=== PATIENT | female | born 1945 | race Caucasian/White ===

== ENCOUNTER 2024-03-01 11:07 | Outpatient (CLI) | payer MEDICARE, BC, SELFPAY | END 2024-03-01 11:08 | disposition home or self-care (01) | LOC: AMB 03-15 08:14 | PROVIDERS: PCP Clinical Nurse Specialist Adult Health; Visit Provider Family Medicine | DX: S89.92XA Unspecified injury of left lower leg, initial encounter (principal); R53.1 Weakness; W18.11XA Fall from or off toilet without subsequent striking against object, initial encounter; Y92.031 Bathroom in apartment as the place of occurrence of the external cause | CPT/HCPCS: A0425; A0427 ==

== ENCOUNTER 2024-03-01 11:46 | Emergency (ER) | payer MEDICARE, BC, SELFPAY ==
[2024-03-01] VITALS (53 sets, daily range): BP systolic 107–143; BP diastolic 56–113; PULSE 80–114; RESP 16–20; TEMP 36.3; O2SAT 91–100; BMI 25.8
--- OUTSIDE RECORDS SUMMARY | 2024-03-01 11:48 | XMS_ITS | Continuity of Care Document ---
Author Name NwHIN User [facility] Address Unknown Organization Unknown Address Unknown Encounters FILTER APPLIED:Only known Encounters with Admission Date within the last 5 years Encounter Location Admission Discharge Billing Code Slitter And Cutter Operator [facility]ie [facility] Emergency
--- OUTSIDE RECORDS SUMMARY | 2024-03-01 11:48 | XMS_ITS | Clinical Summary ---
Author Organization [facility] Address [address] [place] [address] Care Team Providers Care Highway Commissioner Name Role Phone Sara Nur APRN, C.N.P. Primary Care Provide r Source Comments Patient records contain information from all sites at [facility]. For routine questions regarding patient records, call [phone] during business hours, M-F 8:00 AM - 5:00 PM Central Time. Record requests for emergency care only can be directed to [phone] at any time.[facility] Allergies No known active allergies Medications ALPRAZolam (XANAX) 0.25 mg tabletIndications: Insomnia Take 1 tablet (0.25 mg total) by mouth at bedtime as needed for anxiety. 30 tablet 5 [address] tabletIndications: Coronary Artery Disease Without Angina Pectoris Take 1 tablet (81 mg total) by mouth daily. 90 tablet 3 3 Active acetaminophen (Tylenol Extra Strength) 500 mg tablet Take 1,000 mg by mouth every 4 (four) hours as needed for pain. Active ibuprofen 200 mg tablet Take 400 mg by mouth every 4 (four) hours as needed for pain. Active cyclobenzaprine (FlexeriL) 10 mg tabletIndications: Fracture Stress Sacral And Sacrococcygeal Initial Take 1 tablet (10 mg total) by mouth 3 (three) times a day as needed for muscle spasms. 20 tablet 4 Active lidocaine (Lidoderm) 5 % adhesive patch,medicatedInd ications:Fracture Stress Sacral And Sacrococcygeal Initial Place 1 patch on the skin daily. Apply to Lower Back. 30 patch 4 Active amLODIPine (Norvasc) 5 mg tabletIndications: Hypertensive Heart Disease Without Heart Failure Take 1 tablet (5 mg total) by mouth daily. 90 tablet 3 4 Active atorvastatin (Lipitor) 40 mg tabletIndications: Coronary Artery Disease Without Angina Pectoris Take 1 tablet (40 mg total) by mouth at bedtime. 90 tablet 3 4 Active lisinopril-hydroCH LOROthiazide 20-12.5 mg per tablet Take 1 tablet by mouth daily. 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 180 tablet 3 4 025 Active metoprolol succinate (Toprol XL) 100 mg 24 hr tabletIndications: Hypertensive Heart Disease Without Heart Failure Take 1 tablet (100 mg total) by mouth daily. Do not crush or chew. 90 tablet 3 4 025 Active mirtazapine (Remeron) 15 mg tabletIndications: Insomnia Take 1 tablet (15 mg total) by mouth at bedtime. 90 tablet 3 4 025 Active alendronate (Fosamax) 70 mg tabletIndications: Osteoporosis Post Menopausal With Pathological Fracture Subsequent Take 1 tablet (70 mg total) by mouth every 7 (seven) days. 1 tablet weekly on an empty stomach, remain upright for at least 30 minutes 12 tablet 3 4 Active traMADoL (Ultram) 50 mg tabletIndications: Acute Pain Take 1 tablet (50 mg total) by mouth every 6 (six) hours as needed for pain or moderate pain or score 4-6 of 10 Indications: Acute Pain. 12 tablet 4 Active oxyCODONE (Roxicodone) 5 mg immediate release tabletIndications: Acute Pain Take 1 tablet (5 mg total) by mouth every 4 (four) hours as needed for pain Indication: Acute Pain. 12 tablet 4 Active cyclobenzaprine (FlexeriL) 10 mg tablet Take 1 tablet (10 mg total) by mouth 3 (three) times a day as needed for muscle spasms for up to 10 days. 15 tablet 5 025 Active traMADoL (Ultram) 50 mg tabletIndications: Acute Pain Take 1 tablet (50 mg total) by mouth every 6 (six) hours as needed for pain or moderate pain or score 4-6 of 10 Indications: Acute Pain. 12 tablet 4 024 Discontin ued(Reord er) cyclobenzaprine (FlexeriL) 10 mg tablet Take 1 tablet (10 mg total) by mouth 3 (three) times a day as needed for muscle spasms for up to 10 days. 15 tablet 4 024 Discontin ued(Reord er) Active Problems Problem Noted Date Diagnosed Date History Of Falling 10/02/2023 Hypertensive Heart And Chron ic Kidney Disease Without Heart Failure With Stage 1 To 4 Chronic Kidney Disease Or Unspecified Chronic Kidney Disease 11/23/2022 Diabetes Mellitus Type 2 Wit h Diabetic Chronic Kidney Disease 11/23/2022 Insomnia 10/02/2022 Pain Hip Left 02/05/2018 Diabetes Mellitus Type 2 Wit h Other Circulatory Complication 05/19/2010 Overview (07/10/2016): Diabetes mellitus type II Coronary Artery Disease Without Angina Pectoris 04/21/2008 Nicotine Dependence Cigarettes 04/21/2008 Resolved Problems Problem Noted Date Diagnosed Date Resolved Date Anxiety 02/05/2018 10/02/2022 Myocardial Infarction Acute 06/12/2016 02/05/2018 Overview (07/10/2016): Myocardial Infarction (CO) Acute NOS Hypertensive Heart Disease W ithout Heart Failure 04/21/2008 11/23/2022 Encounters Date Type Department Care Team Description 02/18/2024 Refill Department of Family Medicine, [facility], in [address] [phone] Sara Nur APRN, C.N.P. Med Refill 02/10/2024 9:52 AM WALL ATTENDANT - 02/10/2024 10:17 AM WALL ATTENDANT Emergency [facility] [address] [place] [phone] Dhaval Mueller, PZoe. Pain Back (Primary Dx) Discharge Disposition: Home or Self Care 02/10/2024 Nurse Triage Department of [facility] Medicine, [facility], in [address] [phone] Katie Epstein R.N. Tailbone Pain 02/07/2024 Clinical Communication Department of [facility] Medicine, [facility], in [address] [phone] Sara Nur, CINTHYA, C.N.P. New Med Request from Last 3 Months Immunizations Name Administration Dates Next Due HZV (ZOSTAVAX) 03/13/2012 Influenza high dose QV(65 ye ars or older) (PF) 12/17/2021,01/07/2021,01/19/2020 Influenza, Unspecified 11/28/2015,11/26/2014, PCV13 11/26/2014 PPSV23 03/08/2017,02/18/2006 RZV (SHINGRIX) 12/26/2018,03/12/2018 SARS-COV-2 (COVID-19) - PFIZ ER (Discontinued)(12 years or older) 01/07/2021,04/30/2020,04/09/2020 Td (Adult), adsorbed 06/26/2005 Td Preservative Free (TENIVAC, DECAVAC) 03/08/19 18 Tdap 07/27/2005 influenza trivalent high dose (HD)(PF) 9,02/05/2018,01/14/2017 Family History Medical History Relation Name Comments Pancreatic cancer Half-Brother Relation Name Status Comments Father Half-Brother Other Mother Social History Tobacco Use Types Packs/Day Years Used Date Smoking Tobacco: Every Day Cigarettes Smokeless Tobacco: Never Tobacco Cessation:Ready to Q uit: Not Asked; Counseling Given: Not Answered Alcohol Use Standard Drinks/Week Comments No 0 (1 standard drink = 0.6 oz pur e alcohol) [facility] Utilities Answer Date Recorded In the past 12 months has e [employer], [employer], or [employer] threatened to shut off services in your home? No 10/02/2023 Humiliation, Afraid, Rape, and Kick questionnair e Answer Date Recorded Within the last year, have y ou been afraid of your partner or ex-partner? No 10/02/2023 Within the last year, have y ou been humiliated or emotionally abused in other ways by your partner or ex-partner? No Within the last year, have y ou been kicked, hit, slapped, or otherwise physically hurt by your partner or ex-partner? No 10/02/2023 Within the last year, have y ou been raped or forced to have any kind of sexual activity by your partner or ex-partner? No 10/02/2023 PHQ-2 Answer Date Recorded PHQ-2 Score 1 10/02/2023 Exercise Vital Sign Answer Date Recorde d On average, how many days pe r week do you engage in moderate to strenuous exercise (like a brisk walk)? 7 days 10/02/2023 On average, how many minutes do you engage in exercise at this level? 30 min 10/02/2023 Hunger Vital Sign Answer Date Recorded Within the past 12 months, y ou worried that your food would run out before you got the money to buy more. Never true 10/02/19 Within the past 12 months, t he food you bought just didn't last and you didn't have money to get more. Never true 10/02/2023 PRAPARE - Transportation Answer Date Re corded In the past 12 months, has l ack of transportation kept you from medical appointments or from getting medications? No 09/18 In the past 12 months, has l ack of transportation kept you from meetings, work, or from getting things needed for daily living? No 10/02/2023 Depression Answer Date Recor ded PHQ-9 Total Score (max 27) 9 03/28 Nutrition Answer Date Recorded On average, how many serving s of fruits and vegetables do you eat per day (serving size is equal to 1 cup or approximately the size of a tennis ball)? 0-2 10/02/2023 Dental Answer Date Recorded Dental: Regular Dentist Yes 10/02/19 Employment Answer Date Recorded Employment status Retired 10/02/2023 Housing Stability Answer Date Recorded What is your living situation today? I have a [facility] place to live 10/02/2023 Comments No Sex and Gender Information Value Date Recorded Sex Assigned at Not on file Legal Sex Female 3:40 PM WALL ATTENDANT Gender Identity Not on file Sexual Orientation Not on file Last Filed Vital Signs Vital Sign Reading Time Taken Comments Blood Pressure 135/67 02/10/2024 9:59 AM WALL ATTENDANT Pulse 74 02/10/2024 9:59 AM WALL ATTENDANT Temperature 36.3 C (97.3 F) 02/10/2024 9:59 AM WALL ATTENDANT Respiratory Rate 18 02/10/2024 9:59 AM WALL ATTENDANT Oxygen Saturation 96% 02/10/2024 9:59 AM WALL ATTENDANT Inhaled Oxygen Concentration - - Weight 77.4 kg (170 lb 10.2 oz) 024 10:19 AM CDT Height 166.3 cm (5' 5.47) 10/02/2023 1 0:19 AM CDT Body Mass Index 27.99 10/02/2023 10:19 AM CDT Plan of Treatment Upcoming Encounters Date Type Department Care Team (Late st Contact Info) Description 03/06/2024 9:45 AM WALL ATTENDANT Office Visit Department of Family Medicine, [facility], in [address] [phone] Joon Anglin M.D. [address] [place] [phone] Discharge Disposition: Home or Self Care Health Maintenance Due Date Last Done Comments Hepatitis B Vaccines (1 of 3 - Risk 3-dose series) 2005 Diabetes Education 07/31/2016 11/26/2014 RSV vaccine - (32-36 weeks) or 60+ years (1 - 1-dose 75+ series) 2020 Diabetic Office Visit with Foot Exam 10/03/2023 10/02/2022, 10/02/2022, 02/22/2021, Additional history exists Tobacco Cessation counseling 10/03/2023 10/02/2022 COVID-19 Vaccine ( season) 2023 01/07/2021, 04/30/2020, 04/09/2020 Influenza Vaccine (#1) 2023 , 01/07/2021, 01/19/2020, Additional history exists Hemoglobin A1C 11/28/2023 05/29/2023, 09/19, 03/06/2022, Additional history exists Creatinine Level (Kidney Function Test) 01/10/2024 01/09/2023, 11/23/2022, 11/16/2022, Additional history exists Potassium Level 01/10/2024 01/09/2023, 1007/2022, 11/16/2022, Additional history exists Sodium Level 01/10/2024 01/09/2023, 1007/2022, 11/16/2022, Additional history exists Urine Albumin 01/10/2024 01/09/2023, 10/20, 03/06/2022, Additional history exists Fall Risk Screen (Annual) 02/19/2024 Dilated Eye Exam 07/23/2024 07/24/2023 (Per formed elsewhere), 11/23/2019 (Performed elsewhere), 11/17/2018 (Performed elsewhere), Additional history exists Office Visit for Blood Pressure Check / Re-check 10/01/2024 10/02/2023 Visit: Medicare Annual Wellness 10/02/2024 10/02/2023, 10/02/2022 DTaP,Tdap,and Td Vaccines (3 - Td or Tdap) 03/08/2027 03/08/2017, 07/27/2005, 06/26/2005 Pneumococcal vaccine (50+ years) Completed 03/08/2017, 11/26/2014, 02/18/2006 Hepatitis C Screening Completed 12/26/2018 Zoster Vaccines Completed 12/26/2018, 02/19, 03/13/2012 Mammogram Discontinued 02/23/2021, 01/19, 02/06/2019, Additional history exists Depression Screening (Annual PHQ-2) Completed 10/02/2023 Visit: Chronic Disease, age 18+ Discontinued 10/02/2023, 10/02/2023, 06/21/2021 IPV Vaccines Aged Out No longer eligi ble based on patient's age to complete this topic Medical Devices Implanted Type Area Robotics Systems Engineer Device Identifier Shelf Expiration Date Model / Serial / Lot Synergy 4.0 X 16 - Singh [id number] Implanted:Qty: 1 on 10/17/2015 Cardiac Stent Soevolved Description:Device Manufactu rer - [employer]evolved. Device Status Text - [id number]. 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 Glomerular Filtration Rate (GFR) 30 To 44 (HCC) BASIC METABOLIC PANEL, S/P Routine 01/09/2023 12:26 PM WALL ATTENDANT Edema Lower Extremity Failure Renal Acute (Acute Kidney Injury) (HCC) BI BREAST SCREENING BILATERAL WITH TOMOSYNTHESIS RAD - Routine (most inpatients and all outpatients) 02/23/2021 7:45 AM WALL ATTENDANT Screening Mammogram Breast Cancer HCV AB SCRN W/REFLEX TO HCV PCR, S Routine 12/26/2018 2:50 PM WALL ATTENDANT Wellness Screening from Last 3 Months or Most Recently Relevant to Health Maintenance Results * (ABNORMAL) Hemoglobin A1c (05/29/2023 11:23 AM CDT) Hemoglobin A1c, B 6.5(H) 4.2 - 5.6 % 05/29/2023 11:37 AM CDT CNFL Comment: Hemoglobin A1c values greater than or equal to 6.5 percent are diagnostic for diabetes mellitus. Diagnosis should be confirmed by repeat testing. In diabetic patients, HbA1c goals should be discussed with healthcare provider. Blood (Blood, Venous) 05/29/2023 11:23 AM CDT 05/29/2023 11:24 AM CDT Carlos Parr M.D., Ph.D. LAB BLOOD ADD-ON Final Result Performing Organization Address [facility]/ZIP Co de Phone Number [facility] [address] [place] [phone], [place] [address] * Albumin, Random, Urine (01/09/2023 12:38 PM WALL ATTENDANT) Microalbumin <12.0 mg/L 01/09/2023 12:53 PM WALL ATTENDANT CNFL Comment:If clinically indica marlo, contact the lab for additional testing. Creatinine 91 mg/dL 01/09/2023 12:53 PM WALL ATTENDANT CNFL Albumin/Creatinine Ratio <13 <25 mg/g 01/09/2023 12:53 PM WALL ATTENDANT CNFL Comment: This ratio may not correspond with the reference range because one or both of the values used to calculate the ratio was above or below the quantification limits. Urine (Urine, Midstream) 01/09/2023 12:38 PM WALL ATTENDANT 01/09/2023 12:38 PM WALL ATTENDANT Carlos Parr M.D., Ph.D. LAB URINE ORDERABLES Fi nal Result Performing Organization Address [facility] Co de Phone Number [facility] [address] [place] [phone], RUST CNFL [address] [address] * (ABNORMAL) Basic Metabolic Panel (01/09/2023 12:26 PM WALL ATTENDANT) Potassium, P 4.2 3.6 - 5.2 mmol/L 01/09/2023 1:00 PM WALL ATTENDANT CNFL Sodium, P 136 135 - 145 mmol/L 01/09/2023 1:00 PM WALL ATTENDANT CNFL Chloride, P 101 98 - 107 mmol/L 01/09/2023 1:00 PM WALL ATTENDANT CNFL Bicarbonate, P 24 22 - 29 mmol/L 01/09/2023 1:00 PM WALL ATTENDANT CNFL Anion Gap, P 11 7 - 15 01/09/2023 1:00 PM WALL ATTENDANT CNFL BUN (Blood Urea Nitrogen), P 24(H) 6 - 21 mg/dL 01/09/2023 1:00 PM WALL ATTENDANT CNFL Creatinine 1.42(H) 0.59 - 1.04 mg/dL 01/09/2023 1:00 PM WALL ATTENDANT CNFL Estimated GFR (eGFR) 38(L) >=60 mL/min/BSA 01/09/2023 1:00 PM WALL ATTENDANT CNFL Comment: Estimated GFR calculated using the 2020 CKD_EPI creatinine equation. Calcium, Total, P 9.2 8.8 - 10.2 mg/dL 01/09/2023 1:00 PM WALL ATTENDANT CNFL Glucose, P 147(H) 70 - 140 mg/dL 01/09/2023 1:00 PM WALL ATTENDANT CNFL Blood (Blood, Venous) 01/09/2023 12:26 PM WALL ATTENDANT 01/09/2023 12:31 PM WALL ATTENDANT us Jackie Stark M.D. LAB BLOOD ADD-ON Final Res ult Performing Organization Address City/State/[facility] Co de Phone Number [facility] [address] [place] [address], RUST CNFL [facility] [place] [address] * BI Breast Screening Bilateral with Tomosynthesis (02/23/2021 7:45 AM WALL ATTENDANT) Anatomical Region Laterality Modality Breast, Breast Imaging RST L OS, Breast Imaging ARZ LOS, Breast Imaging FLA LOS Bilateral Mammography 02/23/2021 8:48 AM WALL ATTENDANT Impressions 02/23/2021 8:51 AM WALL ATTENDANT Negative. RECOMMENDATION: Annual Screening Mammogram ASSESSMENT: BI-RADS: 1: Negative. Narrative 02/23/2021 8:51 AM WALL ATTENDANT EXAM: BI BREAST SCREENING BILATERAL WITH TOMOSYNTHESIS Current study was evaluated with a Computer Aided Detection (CAD) system. INDICATION: Screening mammogram. COMPARISON: Prior exam(s) were available and reviewed for comparison. DENSITY: b. There are scattered areas of fibroglandular density. FINDINGS: No mammographic findings of malignancy. Procedure Note Ellis Rutherford M.D. - 02/23/2021 EXAM: BI BREAST SCREENING BILATERAL WITH TOMOSYNTHESIS Current study was evaluated with a Computer Aided Detection (CAD) system. INDICATION: Screening mammogram. COMPARISON: Prior exam(s) were available and reviewed for comparison. DENSITY: b. There are scattered areas of fibroglandular density. FINDINGS: No mammographic findings of malignancy. IMPRESSION: Negative. RECOMMENDATION: Annual Screening Mammogram ASSESSMENT: BI-RADS: 1: Negative. Carlos Parr M.D., Ph.D. IMG BI PROCEDURES Final Result * HCV Ab Scrn w/Reflex to HCV PCR, Serum (12/26/2018 2:50 PM WALL ATTENDANT) HCV Ab Screen, S Negative Negative 12/28/19 19 1:42 AM WALL ATTENDANT ECLR Comment: Biotin has been identified by the rotary cutter as a potential interfering substance. Higher concentrations of biotin may be found in multivitamins, hair/nail supplements, and workout supplements. If the result does not match clinical observations, repeat testing after patient refrains from the use of supplements for at least 12 hours. Blood (Blood, Venous) 12/26/2018 2:50 PM WALL ATTENDANT 12/26/2018 9:39 PM WALL ATTENDANT Narrative [facility] - 12/27/2018 1:42 AM WALL ATTENDANT Specimen Information: Specimen ID: [id number] Specimen Type: Blood Specimen Collection Start Date: 12/26/2018 2:50 PM Specimen Received Date: 12/26/2018 9:39 PM Specimen ID: [id number] Specimen Type: Blood Specimen Collection Start Date: 12/26/2018 2:50 PM Specimen Received Date: 12/26/2018 9:39 PM Carlos Parr M.D., Ph.D. LAB MICROBIOLOGY - BLOO D ORDERABLES Final Result [facility] [address] [place] [phone], RUST ECLR [facility] in [address] [address] from Last 3 Months or Most Recently Relevant to Health Maintenance Insurance MEDICARE [facility] Care Teams Highway Commissioner Relationship Specialty Start Date End Date Sara Nur APRN, C.N.P. [address] [place] [phone] PCP - General 07/05/23
--- OUTSIDE RECORDS SUMMARY | 2024-03-01 11:49 | XMS_ITS ---
Author Organization [facility] Address [address] [place] [address] Care Team Providers Care Cold Mill Operator Name Role Phone Unavailable Unavailable Unavailable Surgery Details Not on file Complications Check Surgery Details section. Procedure Estimated Blood Loss Check Surgery Details section. Procedure Findings Check Surgery Details section. Procedure Specimens Taken Check Surgery Details section.
--- OUTSIDE RECORDS SUMMARY | 2024-03-01 11:49 | XMS_ITS | Encounter Summary ---
Author Organization [facility] Address [address] [place] [address] Care Team Providers Care Computer Science Teacher Name Role Phone Sara Nur APRN, C.N.P. Primary Care Provide r Reason for Visit * Reason Onset Date Comments Med Refill 02/18/2024 Encounter Details Date Type Department Care Team (Late st Contact Info) Description 02/18/2024 Refill Department of Family Medicine, [facility], in [address] [phone] Sara Nur APRN, C.N.P. [address] [place] [phone] Med Refill Social History Tobacco Use Types Packs/Day Years Used Date Smoking Tobacco: Every Day Cigarettes Smokeless Tobacco: Never Alcohol Use Standard Drinks/Week Comments No 0 (1 standard drink = 0.6 oz pur e alcohol) [facility] Utilities Answer Date Recorded In the past 12 months has [employer], gas, oil, or water [employer] threatened to shut off services in your [...] your living situation today? I have a [facility] place to live 10/02/2023 Comments No Sex and Gender Information Value Date Recorded Sex Assigned at Not on file Legal Sex Female 3:40 PM PERSONAL ASSISTANT Gender Identity Not on file Sexual Orientation Not on file documented as of this encounter Miscellaneous Notes * Telephone Encounter - John Hackett, L.P.N. - 02/21/2024 11:42 AM PERSONAL ASSISTANT This prescription was prescribed for short term use / acute need. Please reach out and call patientto assess ongoing pain concerns before routing to provider. Thank you ONAL ASSISTANT * Telephone Encounter - Jessica Sharif - 02/20/2024 9:31 AM CST Needs Review: Med Refill Team is unable to forward request to provider. Controlled Substance Primary Provider: Sara Nur APRN, C.N.P. Requested Prescriptions Pending Prescriptions Disp Refills traMADoL (Ultram) 50 mg tablet 12 tablet 0 Sig: Take 1 tablet (50 mg total) by mouth every 6 (six) hours as needed for pain or moderate pain or score 4-6 of 10 Indications: Acute Pain. cyclobenzaprine (FlexeriL) 10 mg tablet 15 tablet 0 Sig: Take 1 tablet (10 mg total) by mouth 3 (three) times a day as needed for muscle spasms for up to 10 days. ONAL ASSISTANT documented in this encounter Plan of Treatment Upcoming Encounters Date Type Department Care Team (Late st Contact Info) Description 03/06/2024 9:45 AM PERSONAL ASSISTANT Office Visit Department of Family Medicine, [facility], in [address] [phone] Joon Anglin M.D. [address] [place] [phone] Discharge Disposition: Home or Self Care documented as of this encounter Visit Diagnoses Not on filedocumented in this encounter Additional Health Concerns Assessment Noted Time PHQ-9 Depression Total Score: 9 03/28/19 21 9:55 AM PERSONAL ASSISTANT documented as of this encounter Care Teams Computer Science Teacher Relationship Specialty Start Date End Date Sara Nur APRN, C.N.P. [address] [place] [phone] PCP - General 07/05/23 documented as of this encounter
--- OUTSIDE RECORDS SUMMARY | 2024-03-01 11:49 | XMS_ITS | Encounter Summary ---
Author Organization [facility] Address [address] [place] [address] Care Team Providers Care Cdl Truck Driver Name Role Phone Sara Nur APRN, C.N.P. Primary Care Provide r Reason for Visit * Reason Comments Back Pain Encounter Details Date Type Department Care Team (Late st Contact Info) Description 02/10/2024 9:52 AM RAIL CAR OPERATOR - 02/10/2024 10:17 AM [facility] Emergency [facility] [address] [place] [phone] Dhaval Mueller, P.A.-C. [address] [place] [phone] Pain Back (Primary Dx) Discharge Disposition: Home or Self Care Social History Tobacco Use Types Packs/Day Years Used Date Smoking Tobacco: Every Day Cigarettes Smokeless Tobacco: Never Alcohol Use Standard Drinks/Week Comments No 0 (1 standard drink = 0.6 oz pur e alcohol) [facility] Utilities Answer Date Recorded In the past 12 months has e electric, gas, oil, or water company threatened to shut off services in your [...] your living situation today? [facility] 10/02/2023 Comments No Sex and Gender Information Value Date Recorded Sex Assigned at Not on file Legal Sex Female 3:40 PM RAIL CAR OPERATOR Gender Identity Not on file Sexual Orientation Not on file documented as of this encounter Last Filed Vital Signs Vital Sign Reading Time Taken Comments Blood Pressure 135/67 02/10/2024 9:59 AM RAIL CAR OPERATOR Pulse 74 02/10/2024 9:59 AM RAIL CAR OPERATOR Temperature 36.3 C (97.3 F) 02/10/2024 9:59 AM RAIL CAR OPERATOR Respiratory Rate 18 02/10/2024 9:59 AM RAIL CAR OPERATOR Oxygen Saturation 96% 02/10/2024 9:59 AM RAIL CAR OPERATOR Inhaled Oxygen Concentration - - Weight - - Height - - Body Mass Index - - documented in this encounter Discharge Instructions * Discharge Instructions* Dhaval Mueller P.A.-C. - 02/10/2024 10:09 AM RAIL CAR OPERATOR I am writing prescriptions for oxycodone and Flexeril which were helpful with your pain previously.I would like for you to follow up with your primary care provider to consider advanced imaging since her symptoms have returned. Please return to the ER if new symptoms develop, current symptoms worsen, or you becomes concerned. CAR OPERATOR * Attachments The following attachments cannot be sent through Care Everywhere. * Acute Back Pain Adult ([place]atem[place]) documented in this encounter Medications at Time of Discharge acetaminophen (Tylenol Extra Strength) 500 mg tablet Take 1,000 mg by mouth every 4 (four) hours as needed for pain. alendronate (Fosamax) 70 mg tabletIndications:Os teoporosis Post Menopausal With Pathological Fracture Subsequent Take 1 tablet (70 mg total) by mouth every 7 (seven) days. 1 tablet weekly on an empty stomach, remain upright for at least 30 minutes 12 tablet 3 10/31/2023 ALPRAZolam (XANAX) 0.25 mg tabletIndications:In somnia Take 1 tablet (0.25 mg total) by mouth at bedtime as needed for anxiety. 30 tablet 5 10/02/2022 amLODIPine (Norvasc) 5 mg tabletIndications:Hy pertensive Heart Disease Without Heart Failure Take 1 tablet (5 mg total) by mouth daily. 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 90 tablet 3 10/02/2023 cyclobenzaprine (FlexeriL) 10 mg tabletIndications:Fr acture Stress Sacral And Sacrococcygeal Initial Take 1 tablet (10 mg total) by mouth 3 (three) times a day as needed for muscle spasms. 20 tablet 10/02/2023 ibuprofen 200 mg tablet Take 400 mg by mouth every 4 (four) hours as needed for pain. lidocaine (Lidoderm) 5 % adhesive patch,medicatedIndic ations:Fracture Stress Sacral And Sacrococcygeal Initial Place 1 patch on the skin daily. Apply to Lower Back. 30 patch 10/02/2023 lisinopril-hydroCHLO ROthiazide 20-12.5 mg per tablet Take 1 tablet by mouth daily. 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 180 tablet 3 10/02/2023 5 metoprolol succinate (Toprol XL) 100 mg 24 hr tabletIndications:Hy pertensive Heart Disease Without Heart Failure Take 1 tablet (100 mg total) by mouth daily. Do not crush or chew. 90 tablet 3 10/02/2023 5 mirtazapine (Remeron) 15 mg tabletIndications:In somnia Take 1 tablet (15 mg total) by mouth at bedtime. 90 tablet 3 10/02/2023 5 oxyCODONE (Roxicodone) 5 mg immediate release tabletIndications:Ac [place] Pain Take 1 tablet (5 mg total) by mouth every 4 (four) hours as needed for pain Indication: Acute Pain. 12 tablet 02/10/2024 traMADoL (Ultram) 50 mg tabletIndications:Ac [place] Pain Take 1 tablet (50 mg total) by mouth every 6 (six) hours as needed for pain or moderate pain or score 4-6 of 10 Indications: Acute Pain. 12 tablet 02/09/2024 cyclobenzaprine (FlexeriL) 10 mg tablet Take 1 tablet (10 mg total) by mouth 3 (three) times a day as needed for muscle spasms for up to 10 days. 15 tablet 02/10/2024 4 documented as of this encounter ED Notes * Dhaval Mueller, PTitus-Esperanza - 02/10/2024 10:17 AM CST SUBJECTIVE CHIEF COMPLAINT/REASON FOR VISIT Back Pain HISTORY OF PRESENT ILLNESS 78-year-old female presents ER with complaints of lower back pain that returned after doing laundryyesterday. She states that she was previously seen and diagnosed with a sacral fracture. Her symptoms had improved until this most recent episode. She denies new or changes symptoms compared to previous episodes. History provided by: Patient REVIEW OF SYSTEMS All pertinent systems reviewed and are negative except as discussed in HPI OBJECTIVE Initial Vitals [02/10/24 0959] Temperature 36.3 ??C Pulse Rate 74 Heart Rate Resp Rate 18 Blood Pressure 135/67 SpO2 96 % Pain Score 10 - Worst possible pain PHYSICAL EXAMINATION Constitutional: Nursing note and vitals reviewed. HENT: Head: Normocephalic and atraumatic. Nose: Nose normal. Mouth/Throat: Oropharynx is clear and moist. Mucous membranes are moist. Neck: Neck supple. Cardiovascular: Normal rate, regular rhythm, S1 normal, S2 normal and normal heart sounds. Pulmonary/Chest: Effort normal and breath sounds normal. Abdominal: Soft. Bowel sounds are normal. There is no abdominal tenderness. There is no rigidity, no rebound, no guarding and no CVA tenderness. Musculoskeletal: Cervical back: Neck supple. Legs: Comments: Patient is neurovascularly intact distally. No saddle paresthesias. No lower extremity weakness. No footdrop. Neurological: Alert and oriented to person, place, and time. Skin: Skin is warm. ASSESSMENT/PLAN Assessment and Plan Patient appears well. Based on history, physical exam, and all information gathered in the ER today; I do not suspect spinal abscess, cauda equina syndrome, new fractures. . Patient's symptoms appearconsistent with continued pain following sacral fracture. Please see previous note from her last ERvisit for full details.. Considered additional testing including further imaging , but this does not appear to be indicated at this time given observable information at todays visit. I have reviewed patients previous clinic notes, ER visits, and laboratory testing. Admission does not appear to be indicate at this time, however pt's condition may change requiring repeat examination in the ER. Patie nt appears stable for continued care and work-up as inidicated as an outpatient. Patient will return to the ER if new symptoms develop, current symptoms worsen, symptoms fail to improve, patient becomes concerned. Patient discharged in good condition. Patient reports oxycodone and Flexeril helpful previously and will write prescription for the same. Fall precautions given.. I reviewed the following external records: office records and primary care records. Final Diagnoses: as of 02/11/24 1310 Pain Back Dhaval Mueller P.A.-C. 02/11/24 1317 CAR OPERATOR documented in this encounter Plan of Treatment Upcoming Encounters Date Type Department Care Team (Late st Contact Info) Description 03/06/2024 9:45 AM RAIL CAR OPERATOR Office Visit Department of Family Medicine, [facility], in [address] [phone] Joon Anglin M.D. [address] [place] [phone] Discharge Disposition: Home or Self Care documented as of this encounter Visit Diagnoses Diagnosis Pain Back- Primary documented in this encounter Additional Health Concerns Assessment Noted Time PHQ-9 Depression Total Score: 9 03/28/19 21 9:55 AM RAIL CAR OPERATOR documented as of this encounter Care Teams Cdl Truck Driver Relationship Specialty Start Date End Date Sara Nur APRN, C.N.P. [address] [place] [phone] PCP - General 07/05/23 documented as of this encounter
--- OUTSIDE RECORDS SUMMARY | 2024-03-01 11:49 | XMS_ITS | Encounter Summary ---
Author Organization [facility] Address [address] [place] [address] Care Team Providers Care Test Desk Operator Name Role Phone Sara Nur APRN, C.N.P. Primary Care Provide r Reason for Visit * Reason Onset Date Comments Tailbone Pain 02/10/2024 Encounter Details Date Type Department Care Team (Late st Contact Info) Description 02/10/2024 Nurse Triage Department of Family Medicine, [facility] [place], in [address] [phone] Katie Epstein, RCornelNCornel [address] [place] [phone] Tailbone Pain Social History Tobacco Use Types Packs/Day Years Used Date Smoking Tobacco: Every Day Cigarettes Smokeless Tobacco: Never Alcohol Use Standard Drinks/Week Comments No 0 (1 standard drink = 0.6 oz pur e alcohol) [facility] Utilities Answer Date Recorded In the past 12 months has e Direct[employer], gas, oil, or water [employer] threatened to shut off services in your [...] your living situation today? I have a [facility] place to live 10/02/2023 Comments No Sex and Gender Information Value Date Recorded Sex Assigned at Not on file Legal Sex Female 3:40 PM CHRISTMAS TREE GROWER Gender Identity Not on file Sexual Orientation Not on file documented as of this encounter Miscellaneous Notes * Telephone Encounter - Katie Epstein R.N. - 02/10/2024 8:40 AM CHRISTMAS TREE GROWER Chief Complaint / Reason for Call Patient is a 78 y.o. female calling regarding Tailbone Pain. Assessment Concern: -4 months ago September 2023 fracture to tailbone and it has healed. Left with mild pain. -4 days ago was doing laundry and was bending over a lot and pain in tailbone became severe again -Walking rates pain at a 8-9/10, laying on back flat is the only way pain decreases to a 6/10. Has to push a cart in order to walk for stability due to pain -radiating pain down the back of right leg to foot and down the left leg to the knee -Tingling bilateral legs -She is able to walk with severe pain -Advil helps with pain only for 30 minutes or so and then severe again Present for: 4 days Home cares tried: Blayneil, resting on back Calling to request: appointment The recommended disposition is Go to ED Now (or PCP Triage), See a health care provider within 4 hours, Go to ED Now. -Patient will go to the ED now with someone to drive her Reason for Disposition [1] SEVERE back pain (e.g., excruciating) AND [2] sudden onset AND [3] age > 60 years [1] SEVERE back pain (e.g., excruciating, unable to do any normal activities) AND [2] not improved 2 hours after pain medicine [1] Pain radiates into the thigh or further down the leg AND [2] both legs Can't walk or very difficult to walk Weakness of a leg or foot (e.g., unable to bear weight, dragging foot) Numbness in a leg or foot (i.e., loss of sensation) Additional Information Negative: Dangerous mechanism of injury (e.g., fall > 10 feet or 3 meters, trampoline)(Exception: Pain began > 1 hour after injury.) Tailbone fracture 09/2023 Protocols used: Tailbone Laehnu-Kegmn-BK, Back Wjuv-Lctro-RD Care Advice Patient/Caregiver understands and will follow care advice?: Yes, able to teach back Back Uuqe-Pyfge-GN Nurse Katie Mcelroy Feb 10, 2024 08:47 AM Care Advice GO TO ED NOW: * You need to be seen in the Emergency Department. * Go to the ED at Hospital. * Leave now. Drive carefully. ANOTHER ADULT SHOULD DRIVE: * It is better and safer if another adult drives instead of you. PAIN MEDICINES: * For pain relief, you can take either acetaminophen, ibuprofen, or naproxen. * They are npib-mrk-xefkhto (OTC) pain drugs. You can buy them at the drugstore. * ACETAMINOPHEN - REGULAR STRENGTH TYLENOL: Take 650 mg (two 325 mg pills) by mouth every 4 to 6 hours as needed. Each Regular Strength Tylenol pill has 325 mg of acetaminophen. The most you should take is 10 pills a day (3,250 mg total). Note: In [place], the maximum is 12 pills a day (3,900 mg total). * ACETAMINOPHEN - EXTRA STRENGTH TYLENOL: Take 1,000 mg (two 500 mg pills) every 6 to 8 hours as needed. Each Extra Strength Tylenol pill has 500 mg of acetaminophen. The most you should take is 6 pills a day (3,000 mg total). Note: In [place], the maximum is 8 pills a day (4,000 mg total). * IBUPROFEN (SUCH MOTRIN, ADVIL): Take 400 mg (two 200 mg pills) by mouth every 6 hours. The most you should take is 6 pills a day (1,200 mg total). * NAPROXEN (SUCH ALEVE): Take 220 mg (one 220 mg pill) by mouth every 8 to 12 hours as needed. You may take 440 mg (two 220 mg pills) for your first dose. The most you should take is 3 pills a day(660 mg total). Note: In [place], the maximum is 2 pills a day (one every 12 hours; 440 mg total). * Use the lowest amount of medicine that makes your pain better. PAIN MEDICINES - EXTRA NOTES AND WARNINGS: * Follow these dosing instructions unless your doctor (or COAL CUTTER/PA) has told you to take a different dose. * Acetaminophen is thought to be safer than ibuprofen or naproxen in people over 65 years old. Acetaminophen is in many OTC and prescription medicines. It might be in more than one medicine that you are taking. You need to be careful and not take an overdose. An acetaminophen overdose can hurt the liver. * [employer], the company that makes Tylenol, has different maximum dosage instructions for Tylenol in [place] than in the [place]. [employer], the company that makes Aleve, has different dosage maximum instructions for Aleve in [place] and the [place]. * Some people with muscle and joint pain benefit from using OTC topical pain medicines (such as thetopical NSAID diclofenac). Do NOT also take NSAIDs by mouth while using a topical NSAID. * CAUTION: Do not take acetaminophen if you have liver disease. * CAUTION: Do not take ibuprofen or naproxen if you have stomach problems, kidney disease, are , or have been told by your doctor to avoid this type of anti-inflammatory drug. Do not take ibuprofen or naproxen for more than 7 days without consulting your doctor. If you take blood thinners, ibuprofen and naproxen can increase the risk of bleeding. * Before taking any medicine, read all the instructions on the package. Mask to protect self Someone will drive patient STMAS TREE GROWER documented in this encounter Plan of Treatment Upcoming Encounters Date Type Department Care Team (Late st Contact Info) Description 03/06/2024 9:45 AM CHRISTMAS TREE GROWER Office Visit Department of Family Medicine, [facility] [place], in [address] [phone] Joon Anglin M.D. [address] [place] [phone] Discharge Disposition: Home or Self Care documented as of this encounter Visit Diagnoses Not on filedocumented in this encounter Additional Health Concerns Assessment Noted Time PHQ-9 Depression Total Score: 9 03/28/19 21 9:55 AM CHRISTMAS TREE GROWER documented as of this encounter Care Teams Test Desk Operator Relationship Specialty Start Date End Date Sara Nur APRN, C.N.P. [address] [place] [phone] PCP - General 07/05/23 documented as of this encounter
--- OUTSIDE RECORDS SUMMARY | 2024-03-01 11:49 | XMS_ITS | Referral Summary ---
Author Organization [facility] Address [address] [place] [address] Care Team Providers Care Insurance Defense Paralegal Name Role Phone Sara Nur APRN C.N.P. Primary Care Provide r Source Comments Patient records contain information from all sites at [facility]. For routine questions regarding patient records, call [phone] during business hours, M-F 8:00 AM - 5:00 PM Central Time. Record requests for emergency care only can be directed to [phone] at any time.[facility] Encounters Date Type Department Care Team Description 02/18/2024 Refill Department of Family Medicine, [facility], [address] [phone] Sara Nur APRN, C.N.P. Med Refill 02/10/2024 9:52 AM MAIL DISTRIBUTION SCHEME EXAMINER - 02/10/2024 10:17 AM MAIL DISTRIBUTION SCHEME EXAMINER Emergency [facility] [address] [place] [phone] Dhaval Mueller, P.A.-C. Pain Back (Primary Dx) Discharge Disposition: Home or Self Care 02/10/2024 Nurse Triage Department of Family Medicine, [facility], [address] [phone] Katie Epstein R.N. Tailbone Pain 02/07/2024 Clinical Communication Department of Family Medicine, [facility], [address] [place] [phone] Sara Nur APRN, C.N.P. New Med Request from Last 3 Months Allergies No known active allergies Medications ALPRAZolam [...] Acute 06/12/2016 02/05/2018 Overview (07/10/2016): Myocardial Infarction ([place]) Acute NOS Hypertensive Heart Disease [facility] Heart Failure 04/21/2008 11/23/2022 Immunizations Name Administration Dates Next Due HZV (ZOSTAVAX) 03/13/2012 Influenza high dose QV(65 ye ars or older) (PF) 12/17/2021,01/07/2021,01/19/2020 Influenza, Unspecified 11/28/2015,11/26/2014, PCV13 11/26/2014 PPSV23 03/08/2017,02/18/2006 RZV (SHINGRIX) 12/26/2018,03/12/2018 SARS-COV-2 (COVID-19) - PFIZ ER (Discontinued)(12 years or older) 01/07/2021,04/30/2020,04/09/2020 Td (Adult), adsorbed 06/26/2005 Td Preservative Free (TENIVAC, DECAVAC) 03/08/19 18 Tdap 07/27/2005 influenza trivalent high dose (HD)(PF) 9,02/05/2018,01/14/2017 Social History Tobacco Use Types Packs/Day Years Used Date Smoking Tobacco: Every Day Cigarettes Smokeless Tobacco: Never Tobacco Cessation:Ready to Q uit: Not Asked; Counseling Given: Not Answered Alcohol Use Standard Drinks/Week Comments No 0 (1 standard drink = 0.6 oz pur e alcohol) [facility] Utilities Answer Date Recorded In the past 12 months has e [employer], gas, oil, or water company threatened to [...] Date Recorded Dental: Regular Dentist Yes 10/02/19 24 Employment Answer Date Recorded Employment status Retired 10/02/2023 Housing Stability Answer Date Recorded What is your living situation today? I have a [facility] place to live 10/02/2023 Comments No Sex and Gender Information Value Date Recorded Sex Assigned at Not on file Legal Sex Female 3:40 PM MAIL DISTRIBUTION SCHEME EXAMINER Gender Identity Not on file Sexual Orientation Not on file Last Filed Vital Signs Vital Sign Reading Time Taken Comments Blood Pressure 135/67 02/10/2024 9:59 AM MAIL DISTRIBUTION SCHEME EXAMINER Pulse 74 02/10/2024 9:59 AM MAIL DISTRIBUTION SCHEME EXAMINER Temperature 36.3 C (97.3 F) 02/10/2024 9:59 AM MAIL DISTRIBUTION SCHEME EXAMINER Respiratory Rate 18 02/10/2024 9:59 AM MAIL DISTRIBUTION SCHEME EXAMINER Oxygen Saturation 96% 02/10/2024 9:59 AM MAIL DISTRIBUTION SCHEME EXAMINER Inhaled Oxygen Concentration - - Weight 77.4 kg (170 lb 10.2 oz) 024 10:19 AM CDT Height 166.3 cm (5' 5.47) 10/02/2023 1 0:19 AM CDT Body Mass Index 27.99 10/02/2023 10:19 AM CDT Plan of Treatment Upcoming Encounters Date Type Department Care Team (Late st Contact Info) Description 03/06/2024 9:45 AM MAIL DISTRIBUTION SCHEME EXAMINER Office Visit Department of Family Medicine, [facility], in [address] [phone] Joon Anglin M.D. [address] [place] [phone] Discharge Disposition: Home or Self Care Medical Devices Implanted Type Area Janitorial Supervisor Device Identifier Shelf Expiration Date Model / Serial / Lot Synergy 4.0 X 16 - Singh [id number] Implanted:Qty: 1 on 10/17/2015 Cardiac Stent [employer] Scientific Description:Device Manufactu rer - [employer]. Device Status Text - [id number]. 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 LAB BLOOD ADD-ON Final Result [facility] [address] [place] [id number], [facility] CNFL [facility] in [address] [address] * Albumin, Random, Urine (01/09/2023 12:38 PM MAIL DISTRIBUTION SCHEME EXAMINER) Microalbumin <12.0 mg/L 01/09/2023 12:53 PM MAIL DISTRIBUTION SCHEME EXAMINER CNFL Comment:If clinically indica marlo, contact the lab for additional testing. Creatinine 91 mg/dL 01/09/2023 12:53 PM MAIL DISTRIBUTION SCHEME EXAMINER CNFL Albumin/Creatinine Ratio <13 <25 mg/g 01/09/2023 12:53 PM MAIL DISTRIBUTION SCHEME EXAMINER CNFL Comment: This ratio may not correspond with the reference range because one or both of the values used to calculate the ratio was above or below the quantification limits. Urine (Urine, Midstream) 01/09/2023 12:38 PM MAIL DISTRIBUTION SCHEME EXAMINER 01/09/2023 12:38 PM MAIL DISTRIBUTION SCHEME EXAMINER us Carlos Parr M.D., Ph.D. LAB URINE ORDERABLES Fi nal Result [facility] [address] [place] [id number], [facility] CNFL [facility] [place] [address] * (ABNORMAL) Basic Metabolic Panel (01/09/2023 12:26 PM MAIL DISTRIBUTION SCHEME EXAMINER) Potassium, P 4.2 3.6 - 5.2 mmol/L 01/09/2023 1:00 PM MAIL DISTRIBUTION SCHEME EXAMINER CNFL Sodium, P 136 135 - 145 mmol/L 01/09/2023 1:00 PM MAIL DISTRIBUTION SCHEME EXAMINER CNFL Chloride, P 101 98 - 107 mmol/L 01/09/2023 1:00 PM MAIL DISTRIBUTION SCHEME EXAMINER CNFL Bicarbonate, P 24 22 - 29 mmol/L 01/09/2023 1:00 PM MAIL DISTRIBUTION SCHEME EXAMINER CNFL Anion Gap, P 11 7 - 15 01/09/2023 1:00 PM MAIL DISTRIBUTION SCHEME EXAMINER CNFL BUN (Blood Urea Nitrogen), P 24(H) 6 - 21 mg/dL 01/09/2023 1:00 PM MAIL DISTRIBUTION SCHEME EXAMINER CNFL Creatinine 1.42(H) 0.59 - 1.04 mg/dL 01/09/2023 1:00 PM MAIL DISTRIBUTION SCHEME EXAMINER CNFL Estimated GFR (eGFR) 38(L) >=60 mL/min/BSA 01/09/2023 1:00 PM MAIL DISTRIBUTION SCHEME EXAMINER CNFL Comment: Estimated GFR calculated using the 2020 CKD_EPI creatinine equation. Calcium, Total, P 9.2 8.8 - 10.2 mg/dL 01/09/2023 1:00 PM MAIL DISTRIBUTION SCHEME EXAMINER CNFL Glucose, P 147(H) 70 - 140 mg/dL 01/09/2023 1:00 PM MAIL DISTRIBUTION SCHEME EXAMINER CNFL Blood (Blood, Venous) 01/09/2023 12:26 PM MAIL DISTRIBUTION SCHEME EXAMINER 01/09/2023 12:31 PM MAIL DISTRIBUTION SCHEME EXAMINER us Jackie Stark M.D. LAB BLOOD ADD-ON Final Res ult [facility] [address] [place] [id number], [facility] CNFL [facility] in [address] [address] * BI Breast Screening Bilateral with Tomosynthesis (02/23/2021 7:45 AM MAIL DISTRIBUTION SCHEME EXAMINER) Anatomical Region Laterality Modality Breast, Breast Imaging RST L OS, Breast Imaging ARZ LOS, Breast Imaging FLA LOS Bilateral Mammography 02/23/2021 8:48 AM MAIL DISTRIBUTION SCHEME EXAMINER Impressions 02/23/2021 8:51 AM MAIL DISTRIBUTION SCHEME EXAMINER Negative. RECOMMENDATION: Annual Screening Mammogram ASSESSMENT: BI-RADS: 1: Negative. Narrative 02/23/2021 8:51 AM MAIL DISTRIBUTION SCHEME EXAMINER EXAM: BI BREAST SCREENING BILATERAL WITH TOMOSYNTHESIS [...] to HCV PCR, Serum (12/26/2018 2:50 PM MAIL DISTRIBUTION SCHEME EXAMINER) HCV Ab Screen, S Negative Negative 12/28/19 19 1:42 AM MAIL DISTRIBUTION SCHEME EXAMINER ECLR Comment: Biotin has been identified by the bobbin washer as a potential interfering substance. Higher concentrations of biotin may be found in multivitamins, hair/nail supplements, and workout supplements. If the result does not match clinical observations, repeat testing after patient refrains from the use of supplements for at least 12 hours. Blood (Blood, Venous) 12/26/2018 2:50 PM MAIL DISTRIBUTION SCHEME EXAMINER 12/26/2018 9:39 PM MAIL DISTRIBUTION SCHEME EXAMINER Narrative [facility] - 12/27/2018 1:42 AM MAIL DISTRIBUTION SCHEME EXAMINER Specimen Information: Specimen ID: [id number] Specimen Type: Blood Specimen Collection Start Date: 12/26/2018 2:50 PM Specimen Received Date: 12/26/2018 9:39 PM Specimen ID: [id number] Specimen Type: Blood Specimen Collection Start Date: 12/26/2018 2:50 PM Specimen Received Date: 12/26/2018 9:39 PM Carlos Parr M.D., Ph.D. LAB MICROBIOLOGY - BLOO D ORDERABLES Final Result [facility] [address] [place] [address], [facility] ECLR [facility] [place] [address] from Last 3 Months or Most Recently Relevant to Health Maintenance Insurance MEDICARE [employer] Care Teams Insurance Defense Paralegal Relationship Specialty Start Date End Date Sara Nur APRN, C.N.P. [address] [place] [phone] PCP - General 07/05/23
--- OUTSIDE RECORDS SUMMARY | 2024-03-01 11:49 | XMS_ITS | Encounter Summary ---
Author Organization [facility] Address [address] [place] [address] Care Team Providers Care Home Paraprofessional Name Role Phone Sara Nur APRN, C.N.P. Primary Care Provide r Reason for Visit * Reason Onset Date Comments New Med Request 02/07/2024 Encounter Details Date Type Department Care Team (Latest Contact Info) Description 02/07/2024 Clinical Communication Department of Family Medicine, [facility], in [address] [phone] Sara Nur APRN, C.N.P. [address] [place] [phone] New Med Request Social History Tobacco Use Types Packs/Day Years Used Date Smoking Tobacco: Every Day Cigarettes Smokeless Tobacco: Never Alcohol Use Standard Drinks/Week Comments No 0 (1 standard drink = 0.6 oz pur e alcohol) [facility] Utilities Answer Date Recorded In the past 12 months has [employer], gas, oil, or water [employer] threatened to shut off services in your [...] money to buy more. Never true 10/02/19 24 Within the past 12 months, t he [...] your living situation today? I have a [facility] place to live 10/02/2023 Comments No Sex and Gender Information Value Date Recorded Sex Assigned at Not on file Legal Sex Female 3:40 PM FACTORY MAINTENANCE MANAGER Gender Identity Not on file Sexual Orientation Not on file documented as of this encounter Plan of Treatment Upcoming Encounters Date Type Department Care Team (Late st Contact Info) Description 03/06/2024 9:45 AM FACTORY MAINTENANCE MANAGER Office Visit Department of Family Medicine, [facility], in [address] [phone] Joon Anglin M.D. [address] [place] [phone] Discharge Disposition: Home or Self Care documented as of this encounter Visit Diagnoses Not on filedocumented in this encounter Additional Health Concerns Assessment Noted Time PHQ-9 Depression Total Score: 9 03/28/19 21 9:55 AM FACTORY MAINTENANCE MANAGER documented as of this encounter Care Teams Home Paraprofessional Relationship Specialty Start Date End Date Sara Nur APRN, C.N.P. [address] [place] [phone] PCP - General 07/05/23 documented as of this encounter
--- NOTE | 2024-03-01 12:14 | CRLHL7_ITS ---
For Patients: As a result of the Century Cures Act, medical imaging exams and procedure reports are released immediately into your electronic medical record. You may view this report before your referring provider. If you have questions, please contact your health care provider. Indication: Fall Technique: Volumetric multidetector CT images of the cervical spine were obtained without the administration of IV contrast. Comparison: None available. Findings: There are extensive lytic lesions seen throughout the entirety of the cervical spine within the vertebral bodies and posterior elements. Otherwise the cervical vertebral body heights are grossly preserved. The vertebral bodies are grossly preserved in normal cervical lordosis without evidence of significant spondylolisthesis. There is no displaced fracture or dislocation. There is mild multilevel degenerative disc disease with disc height loss and marginal osteophyte formation. The facets are well imbricated. The paraspinous soft tissues are grossly within normal limits. Impression: Demonstration of extensive lytic lesions seen throughout the entirety of the cervical spine commensurate with likely metastatic disease versus multiple myeloma. Correlate with history of clinical symptoms and known malignancy. No evidence of displaced pathologic fracture. Please note that all CT scans at this facility use dose modulation, iterative reconstruction, and/or weight-based dosing when appropriate to reduce radiation dose to as low as reasonably achievable. Dictated by Juan Jose Keene MD @ 03/01/2024 3:09:50 PM (Electronically Signed)
--- NOTE | 2024-03-01 12:14 | CRLHL7_ITS ---
For Patients: As a result of the Cures Act, medical imaging exams and procedure reports are released immediately into your electronic medical record. You may view this report before your referring provider. If you have questions, please contact your health care provider. INDICATION: Fall. Bilateral hip pain. TECHNIQUE: Pelvis one view. Right hip two views. Left hip two views. COMPARISON: None. FINDINGS: Bone demineralization. No evidence of acute fracture or dislocation. Degenerative changes of the visualized lumbar spine and bilateral hips. Vascular calcifications. IMPRESSION: No acute osseous abnormality. Dictated by Pedro Mariee MD @ 03/01/2024 3:06:39 PM (Electronically Signed)
--- NOTE | 2024-03-01 12:14 | CRLHL7_ITS ---
For Patients: As a result of the Century Cures Act, medical imaging exams and procedure reports are released immediately into your electronic medical record. You may view this report before your referring provider. If you have questions, please contact your health care provider. Indication: fall bilateral hip pain, diffuse abdominal pain, Technique: CT chest/abdomen/pelvis without IV contrast Comparison: None Findings: Chest: Low-density thyroid nodules bilaterally measuring up to 2.0 centimeters, incompletely characterized on this exam. No thoracic lymphadenopathy. The heart is normal in size. No pericardial effusion. Coronary artery calcifications and stenting. The thoracic aorta and pulmonary artery are within normal limits in caliber. There are some airspace opacities seen in the right lung base, concerning for pneumonia. There is a solid pulmonary nodule in the left lung apex measuring approximally 2.3 centimeters in greatest dimension. There are a few additional tiny sub 4 millimeter pulmonary nodules bilaterally. No pleural effusion or pneumothorax. The airways are clear. There are multiple ill-defined low-density lesions seen throughout the liver, incompletely characterized on this exam measuring up to at least 3.0 centimeters in greatest dimension. The gallbladder and biliary system are unremarkable. The spleen, pancreas, adrenal glands, kidneys, ureters, and decompressed bladder are within normal limits in appearance. A Mittal catheter is coiled within the bladder lumen. There is no evidence of bowel obstruction. Moderate stool burden in the distal sigmoid colon/rectum with some colonic wall thickening, which can be seen with stercoral colitis. No free fluid or free air. No abdominopelvic lymphadenopathy. No abdominal aortic aneurysm. Moderate calcific atherosclerosis of the aortoiliac system and its branches. Soft tissue/musculoskeletal: Soft tissues are unremarkable. Acute, nondisplaced fracture of the transverse process of the L2 vertebral body on the right (series number 3, image 111). Remote compression fracture deformity of the T4 vertebral body, with large lytic lesion seen in the T4 vertebral body extending into the spinal canal on the right. Remote nondisplaced fracture of the S1 vertebral body (series number 6, image 64). Expansile lytic lesion in the right lateral 9th rib. Large lytic lesion of the T10 vertebral body extending into the spinal canal, pedicle, and lamina on the left. There are numerous lytic lesions seen throughout the spine and pelvis, concerning for sequela of metastatic disease versus multiple myeloma. Impression: 1. Acute, nondisplaced fracture of the transverse process of the L2 vertebral body on the right (series number 3, image 111). 2. Otherwise, no CT evidence of acute traumatic injury involving the remainder of the exam. 3. Remote compression fracture deformity of the T4 vertebral body. 4. There are numerous lytic lesions seen throughout the spine and pelvis, concerning for sequela of metastatic disease versus multiple myeloma. 5. Airspace opacities in the right lower lobe, concerning for pneumonia. 6. Solid pulmonary nodule in the left lung apex measuring 2.4 centimeters and multiple low-density hepatic lesions, both incompletely characterized on this exam, correlate with prior imaging if available; otherwise, consider PET-CT for evaluation of the pulmonary nodule and CT or MRI with liver protocol for further assessment. Please note that all CT scans at this facility use dose modulation, iterative reconstruction, and/or weight-based dosing when appropriate to reduce radiation dose to as low as reasonably achievable. Dictated by Janusz Tee MD @ 03/01/2024 4:26:10 PM (Electronically Signed)
--- NOTE | 2024-03-01 12:14 | CRLHL7_ITS ---
For Patients: As a result of the Century Cures Act, medical imaging exams and procedure reports are released immediately into your electronic medical record. You may view this report before your referring provider. If you have questions, please contact your health care provider. Indication: Fall Technique: Volumetric multidetector CT images of the head were obtained without the administration of low osmolar intravenous contrast. Comparison: None available Findings: There is no intra-axial or extra-axial fluid collection. There is no mass effect or midline shift. There is age-related cortical atrophy with mild sulcal widening and ex vacuo dilatation of the lateral ventricles. There are chronic small vessel disease changes in the subcortical and periventricular white matter without lost fagan-white differentiation. The orbits and their contents are grossly within normal limits. The bony calvarium is grossly intact. There is minimal bubbly secretion and air-fluid level in the right maxillary sinus. The mastoid air cells are well aerated. Impression: Age-related and chronic small-vessel disease changes of the brain without acute intracranial abnormality. Please note that all CT scans at this facility use dose modulation, iterative reconstruction, and/or weight-based dosing when appropriate to reduce radiation dose to as low as reasonably achievable. Dictated by Juan Jose Keene MD @ 03/01/2024 3:29:52 PM (Electronically Signed)
[2024-03-01] MEDS: ONDANSETRON 2 MG/ML inj 4 MG IVP (12:38)
--- OUTSIDE RECORDS SUMMARY | 2024-03-01 12:40 | XMS_ITS | Clinical Summary ---
Author Organization [facility] Address [address] [place] [address] Care Team Providers Care Marriage Therapist Name Role Phone Sara Nur APRN, C.N.P. Primary Care Provide r Source Comments Patient records contain information from all sites at [facility]. For routine questions regarding patient records, call [phone] during business hours, M-F 8:00 AM - 5:00 PM Central Time. Record requests for emergency care only can be directed to [phone] at any time.[facility] Allergies No known active allergies Medications ALPRAZolam [...] Acute 06/12/2016 02/05/2018 Overview (07/10/2016): Myocardial Infarction (IN) Acute NOS Hypertensive Heart Disease W ithout Heart Failure 04/21/2008 11/23/2022 Encounters Date Type Department Care Team Description 02/18/2024 Refill Department of Family Medicine, [facility], in [address] [phone] Sara Nur APRN, C.N.P. Med Refill 02/10/2024 9:52 AM BLOW MACHINE TENDER STARCH SPRAYING - 02/10/2024 10:17 AM BLOW MACHINE TENDER STARCH SPRAYING Emergency [facility] [address] [place] [phone] Dhaval Mueller, PZoe. Pain Back (Primary Dx) Discharge Disposition: Home or Self Care 02/10/2024 Nurse Triage Department of [facility] Medicine, [facility], in [address] [phone] Katie Epstein R.N. Tailbone Pain 02/07/2024 Clinical Communication Department of [facility] Medicine, [facility], in [address] [phone] Sara Nur, CINTHYA, C.N.P. New Med Request [...] drink = 0.6 oz pur e alcohol) [facility] Utilities Answer Date Recorded In the past 12 months has e [employer], Doctor Evidence, or Method threatened to shut off services in your [...] your living situation today? I have a [facility] place to live 10/02/2023 Comments No Sex and Gender Information Value Date Recorded Sex Assigned at Not on file Legal Sex Female 3:40 PM BLOW MACHINE TENDER STARCH SPRAYING Gender Identity Not on file Sexual Orientation Not on file Last Filed Vital Signs Vital Sign Reading Time Taken Comments Blood Pressure 135/67 02/10/2024 9:59 AM BLOW MACHINE TENDER STARCH SPRAYING Pulse 74 02/10/2024 9:59 AM BLOW MACHINE TENDER STARCH SPRAYING Temperature 36.3 C (97.3 F) 02/10/2024 9:59 AM BLOW MACHINE TENDER STARCH SPRAYING Respiratory Rate 18 02/10/2024 9:59 AM BLOW MACHINE TENDER STARCH SPRAYING Oxygen Saturation 96% 02/10/2024 9:59 AM BLOW MACHINE TENDER STARCH SPRAYING Inhaled Oxygen Concentration - - Weight 77.4 kg (170 lb 10.2 oz) 024 10:19 AM CDT Height 166.3 cm (5' 5.47) 10/02/2023 1 0:19 AM CDT Body Mass Index 27.99 10/02/2023 10:19 AM CDT Plan of Treatment Upcoming Encounters Date Type Department Care Team (Late st Contact Info) Description 03/06/2024 9:45 AM BLOW MACHINE TENDER STARCH SPRAYING Office Visit Department of Family Medicine, [facility], in [address] [phone] Joon Anglin M.D. [address] [place] [phone] Discharge Disposition: Home or Self Care Health [...] this topic Medical Devices Implanted Type Area Rectifying Operator Device Identifier Shelf Expiration Date Model / Serial / Lot Synergy 4.0 X 16 - Singh [id number] Implanted:Qty: 1 on 10/17/2015 Cardiac Stent [employer] Description:Device Manufactu rer - [employer]. Device Status Text - [id number]. 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 Glomerular Filtration Rate (GFR) 30 To 44 (HCC) BASIC METABOLIC PANEL, S/P Routine 01/09/2023 12:26 PM BLOW MACHINE TENDER STARCH SPRAYING Edema Lower Extremity Failure Renal Acute (Acute Kidney Injury) (HCC) BI BREAST SCREENING BILATERAL WITH TOMOSYNTHESIS RAD - Routine (most inpatients and all outpatients) 02/23/2021 7:45 AM BLOW MACHINE TENDER STARCH SPRAYING Screening Mammogram Breast Cancer HCV AB SCRN W/REFLEX TO HCV PCR, S Routine 12/26/2018 2:50 PM BLOW MACHINE TENDER STARCH SPRAYING Wellness Screening from Last 3 Months or [...] BLOOD ADD-ON Final Result Performing Organization Address [facility]/ZIP Co de Phone Number [facility] [address] [place] [phone], [facility] [address] * Albumin, Random, Urine (01/09/2023 12:38 PM BLOW MACHINE TENDER STARCH SPRAYING) Microalbumin <12.0 mg/L 01/09/2023 12:53 PM BLOW MACHINE TENDER STARCH SPRAYING CNFL Comment:If clinically indica marlo, contact the lab for additional testing. Creatinine 91 mg/dL 01/09/2023 12:53 PM BLOW MACHINE TENDER STARCH SPRAYING CNFL Albumin/Creatinine Ratio <13 <25 mg/g 01/09/2023 12:53 PM BLOW MACHINE TENDER STARCH SPRAYING CNFL Comment: This ratio may not correspond with the reference range because one or both of the values used to calculate the ratio was above or below the quantification limits. Urine (Urine, Midstream) 01/09/2023 12:38 PM BLOW MACHINE TENDER STARCH SPRAYING 01/09/2023 12:38 PM BLOW MACHINE TENDER STARCH SPRAYING Carlos Parr M.D., Ph.D. LAB URINE ORDERABLES Fi nal Result Performing Organization Address [facility] Co de Phone Number [facility] [address] [place] [phone], [facility] CNFL [address] [address] * (ABNORMAL) Basic Metabolic Panel (01/09/2023 12:26 PM BLOW MACHINE TENDER STARCH SPRAYING) Potassium, P 4.2 3.6 - 5.2 mmol/L 01/09/2023 1:00 PM BLOW MACHINE TENDER STARCH SPRAYING CNFL Sodium, P 136 135 - 145 mmol/L 01/09/2023 1:00 PM BLOW MACHINE TENDER STARCH SPRAYING CNFL Chloride, P 101 98 - 107 mmol/L 01/09/2023 1:00 PM BLOW MACHINE TENDER STARCH SPRAYING CNFL Bicarbonate, P 24 22 - 29 mmol/L 01/09/2023 1:00 PM BLOW MACHINE TENDER STARCH SPRAYING CN[facility] Anion Gap, P 11 7 - 15 01/09/2023 1:00 PM BLOW MACHINE TENDER STARCH SPRAYING CN[facility] BUN (Blood Urea Nitrogen), P 24(H) 6 - 21 mg/dL 01/09/2023 1:00 PM BLOW MACHINE TENDER STARCH SPRAYING CNFL Creatinine 1.42(H) 0.59 - 1.04 mg/dL 01/09/2023 1:00 PM BLOW MACHINE TENDER STARCH SPRAYING CNFL Estimated GFR (eGFR) 38(L) >=60 mL/min/BSA 01/09/2023 1:00 PM BLOW MACHINE TENDER STARCH SPRAYING CNFL Comment: Estimated GFR calculated using the 2020 CKD_EPI creatinine equation. Calcium, Total, P 9.2 8.8 - 10.2 mg/dL 01/09/2023 1:00 PM BLOW MACHINE TENDER STARCH SPRAYING CNFL Glucose, P 147(H) 70 - 140 mg/dL 01/09/2023 1:00 PM BLOW MACHINE TENDER STARCH SPRAYING CNFL Blood (Blood, Venous) 01/09/2023 12:26 PM BLOW MACHINE TENDER STARCH SPRAYING 01/09/2023 12:31 PM BLOW MACHINE TENDER STARCH SPRAYING us Jackie Stark M.D. LAB BLOOD ADD-ON Final Res ult Performing Organization Address City/State/[facility] Co de Phone Number [facility] [address] [place] [address], [facility] CNFL [facility] [place] [address] * BI Breast Screening Bilateral with Tomosynthesis (02/23/2021 7:45 AM BLOW MACHINE TENDER STARCH SPRAYING) Anatomical Region Laterality Modality Breast, Breast Imaging RST L OS, Breast Imaging ARZ LOS, Breast Imaging FLA LOS Bilateral Mammography 02/23/2021 8:48 AM BLOW MACHINE TENDER STARCH SPRAYING Impressions 02/23/2021 8:51 AM BLOW MACHINE TENDER STARCH SPRAYING Negative. RECOMMENDATION: Annual Screening Mammogram ASSESSMENT: BI-RADS: 1: Negative. Narrative 02/23/2021 8:51 AM BLOW MACHINE TENDER STARCH SPRAYING EXAM: BI BREAST SCREENING BILATERAL WITH TOMOSYNTHESIS [...] to HCV PCR, Serum (12/26/2018 2:50 PM BLOW MACHINE TENDER STARCH SPRAYING) HCV Ab Screen, S Negative Negative 12/28/19 19 1:42 AM BLOW MACHINE TENDER STARCH SPRAYING ECLR Comment: Biotin has been identified by the survey methodologist as a potential interfering substance. Higher concentrations of biotin may be found in multivitamins, hair/nail supplements, and workout supplements. If the result does not match clinical observations, repeat testing after patient refrains from the use of supplements for at least 12 hours. Blood (Blood, Venous) 12/26/2018 2:50 PM BLOW MACHINE TENDER STARCH SPRAYING 12/26/2018 9:39 PM BLOW MACHINE TENDER STARCH SPRAYING Narrative [facility] - 12/27/2018 1:42 AM BLOW MACHINE TENDER STARCH SPRAYING Specimen Information: Specimen ID: [id number] Specimen Type: Blood Specimen Collection Start Date: 12/26/2018 2:50 PM Specimen Received Date: 12/26/2018 9:39 PM Specimen ID: [id number] Specimen Type: Blood Specimen Collection Start Date: 12/26/2018 2:50 PM Specimen Received Date: 12/26/2018 9:39 PM Carlos Parr M.D., Ph.D. LAB MICROBIOLOGY - BLOO D ORDERABLES Final Result [facility] [address] [place] [address], [facility] ECLR [facility] in [address] [address] from Last 3 Months or Most Recently Relevant to Health Maintenance Insurance MEDICARE [facility] Care Teams Marriage Therapist Relationship Specialty Start Date End Date Sara Nur APRN, C.N.P. [address] [place] [phone] PCP - General 07/05/23
--- OUTSIDE RECORDS SUMMARY | 2024-03-01 12:40 | XMS_ITS | Encounter Summary ---
Author Organization [facility] Address [address] [place] [address] Care Team Providers Care Supervisor Keymodule Assembly Name Role Phone Sara Nur APRN, C.N.P. Primary Care Provide r Reason for Visit * Reason Onset Date Comments Tailbone Pain 02/10/2024 Encounter Details Date Type Department Care Team (Late st Contact Info) Description 02/10/2024 Nurse Triage Department of Family Medicine, [facility], in [address] [phone] Katie Epstein, RCornelNCornel [address] [place] [phone] Tailbone Pain Social History Tobacco Use Types Packs/Day Years Used Date Smoking Tobacco: Every Day Cigarettes Smokeless Tobacco: Never Alcohol Use Standard Drinks/Week Comments No 0 (1 standard drink = 0.6 oz pur e alcohol) [facility] Utilities Answer Date Recorded In the past 12 months has e [employer], gas, oil, or water [employer] threatened to shut off services in your [...] your living situation today? I have a [facility] place to live 10/02/2023 Comments No Sex and Gender Information Value Date Recorded Sex Assigned at Not on file Legal Sex Female 3:40 PM WELL REACTIVATOR OPERATOR Gender Identity Not on file Sexual Orientation Not on file documented as of this encounter Miscellaneous Notes * Telephone Encounter - Katie Epstein R.N. - 02/10/2024 8:40 AM WELL REACTIVATOR OPERATOR Chief Complaint / Reason for Call Patient [...] injury.) Tailbone fracture 09/2023 Protocols used: Tailbone Duzswb-Hnlqz-XO, Back Wkcw-Vjwqx-EF Care Advice Patient/Caregiver understands and will follow care advice?: Yes, able to teach back Back Sjvp-Lanwx-NZ Nurse Katie Mcelroy Feb 10, 2024 08:47 [...] acetaminophen, ibuprofen, or naproxen. * They are eati-wqn-ihlldnn (OTC) pain drugs. You can buy them [...] a day (3,000 mg total). Note: In [place], the maximum is 8 pills a day [...] pills a day(660 mg total). Note: In [place], the maximum is 2 pills a day (one every 12 hours; 440 mg total). * Use the lowest amount of medicine that makes your pain better. PAIN MEDICINES - EXTRA NOTES AND WARNINGS: * Follow these dosing instructions unless your doctor (or DIRECTOR CARDIOLOGY/PA) has told you to take a different dose. * Acetaminophen is thought to be safer than ibuprofen or naproxen in people over 65 years old. Acetaminophen is in many OTC and prescription medicines. It might be in more than one medicine that you are taking. You need to be careful and not take an overdose. An acetaminophen overdose can hurt the liver. * [employer], the company that makes Tylenol, has different maximum dosage instructions for Tylenol in [place] than in the [place]. [employer], the company that makes Aleve, has different [...] to protect self Someone will drive patient REACTIVATOR OPERATOR documented in this encounter Plan of Treatment Upcoming Encounters Date Type Department Care Team (Late st Contact Info) Description 03/06/2024 9:45 AM WELL REACTIVATOR OPERATOR Office Visit Department of Family Medicine, [facility], in [address] [phone] Joon Anglin M.D. [address] [place] [phone] Discharge Disposition: Home or Self Care documented as of this encounter Visit Diagnoses Not on filedocumented in this encounter Additional Health Concerns Assessment Noted Time PHQ-9 Depression Total Score: 9 03/28/19 21 9:55 AM WELL REACTIVATOR OPERATOR documented as of this encounter Care Teams Supervisor Keymodule Assembly Relationship Specialty Start Date End Date Sara Nur APRN, C.N.P. [address] [place] [phone] PCP - General 07/05/23 documented as of this encounter
--- OUTSIDE RECORDS SUMMARY | 2024-03-01 12:40 | XMS_ITS ---
Author Organization [facility] Address [address] [place] [address] Care Team Providers Care Poultry Feed Supervisor Name Role Phone Unavailable Unavailable Unavailable Surgery Details Not on file Complications Check Surgery Details section. Procedure Estimated Blood Loss Check Surgery Details section. Procedure Findings Check Surgery Details section. Procedure Specimens Taken Check Surgery Details section.
--- OUTSIDE RECORDS SUMMARY | 2024-03-01 12:40 | XMS_ITS | Encounter Summary ---
Author Organization [facility] Address [address] [place] [address] Care Team Providers Care University Administrator Name Role Phone Sara Nur APRN, C.N.P. Primary Care Provide r Reason for Visit * Reason Comments Back Pain Encounter Details Date Type Department Care Team (Late st Contact Info) Description 02/10/2024 9:52 AM RESIDENT ADVISOR - 02/10/2024 10:17 AM [facility] Emergency [place] [address] [place] [phone] Dhaval Mueller, P.A.-C. [address] [place] [phone] Pain Back (Primary Dx) Discharge Disposition: Home or Self Care Social History Tobacco Use Types Packs/Day Years Used Date Smoking Tobacco: Every Day Cigarettes Smokeless Tobacco: Never Alcohol Use Standard Drinks/Week Comments No 0 (1 standard drink = 0.6 oz pur e alcohol) [facility] Utilities Answer Date Recorded In the [...] your living situation today? I have a [facility] place to live 10/02/2023 Comments No Sex and Gender Information Value Date Recorded Sex Assigned at Not on file Legal Sex Female 3:40 PM RESIDENT ADVISOR Gender Identity Not on file Sexual Orientation Not on file documented as of this encounter Last Filed Vital Signs Vital Sign Reading Time Taken Comments Blood Pressure 135/67 02/10/2024 9:59 AM RESIDENT ADVISOR Pulse 74 02/10/2024 9:59 AM RESIDENT ADVISOR Temperature 36.3 C (97.3 F) 02/10/2024 9:59 AM RESIDENT ADVISOR Respiratory Rate 18 02/10/2024 9:59 AM RESIDENT ADVISOR Oxygen Saturation 96% 02/10/2024 9:59 AM RESIDENT ADVISOR Inhaled Oxygen Concentration - - Weight - - Height - - Body Mass Index - - documented in this encounter Discharge Instructions * Discharge Instructions* Dhaval Mueller P.A.-C. - 02/10/2024 10:09 AM RESIDENT ADVISOR I am writing prescriptions for oxycodone and Flexeril which were helpful with your pain previously.I would like for you to follow up with your primary care provider to consider advanced imaging since her symptoms have returned. Please return to the ER if new symptoms develop, current symptoms worsen, or you becomes concerned. DENT ADVISOR * Attachments The following attachments cannot be sent through Care Everywhere. * Acute Back Pain Adult ([place]) documented in this encounter Medications at Time [...] oxyCODONE (Roxicodone) 5 mg immediate release tabletIndications:Ac [place] Pain Take 1 tablet (5 mg total) by mouth every 4 (four) hours as needed for pain Indication: Acute Pain. 12 tablet 02/10/2024 traMADoL (Ultram) 50 mg tabletIndications:Ac [place] Pain Take 1 tablet (50 mg total) [...] Pain Back Dhaval Mueller P.A.-C. 02/11/24 1317 DENT ADVISOR documented in this encounter Plan of Treatment Upcoming Encounters Date Type Department Care Team (Late st Contact Info) Description 03/06/2024 9:45 AM RESIDENT ADVISOR Office Visit Department of Family Medicine, [facility], in [address] [phone] Joon Anglin M.D. [address] [place] [phone] Discharge Disposition: Home or Self Care documented as of this encounter Visit Diagnoses Diagnosis Pain Back- Primary documented in this encounter Additional Health Concerns Assessment Noted Time PHQ-9 Depression Total Score: 9 03/28/19 21 9:55 AM RESIDENT ADVISOR documented as of this encounter Care Teams University Administrator Relationship Specialty Start Date End Date Sara Nur APRN, C.N.P. [address] [place] [phone] PCP - General 07/05/23 documented as of this encounter
--- OUTSIDE RECORDS SUMMARY | 2024-03-01 12:40 | XMS_ITS | Continuity of Care Document ---
Author Name [facility] User [facility] Address Unknown Organization Unknown Address Unknown Encounters FILTER APPLIED:Only known Encounters with Admission Date within the last 5 years Encounter Location Admission Discharge Billing Code Embroidery Patternmaker [facility]
--- OUTSIDE RECORDS SUMMARY | 2024-03-01 12:40 | XMS_ITS | Referral Summary ---
Author Organization [facility] Address [address] [place] [address] [address] Team Prov[address] Care Ct Scan Special Procedures Technologist Name Role Phone Sara Nur APRN C.N.P. Primary Care Provide r Source Comments Patient records contain information from all sites at [facility]. For routine questions regarding patient records, call [phone] during business hours, M-F 8:00 AM - 5:00 PM Central Time. Record requests for emergency care only can be directed to [phone] at any time.[facility] Encounters Date Type Department Care Team Description 02/18/2024 Refill Department of Family Medicine, [facility], [address] [phone] Sara Nur APRN, C.N.P. Med Refill 02/10/2024 9:52 AM TALENT SCOUT - 02/10/2024 10:17 AM TALENT SCOUT Emergency [facility] [address] [place] [phone] Dhaval Mueller, P.A.-C. Pain Back (Primary Dx) Discharge Disposition: Home or Self Care 02/10/2024 Nurse Triage Department of Family Medicine, [facility], [address] [phone] Katie Epstein R.N. Tailbone Pain 02/07/2024 Clinical Communication Department of Family Medicine, [facility], [address] [place] [phone] Sara Nur APRN, C.N.P. New Med Request [...] Acute 06/12/2016 02/05/2018 Overview (07/10/2016): Myocardial Infarction (CA) Acute NOS Hypertensive Heart Disease W [facility] Heart Failure 04/21/2008 11/23/2022 Immunizations Name [...] drink = 0.6 oz pur e alcohol) [facility] Utilities Answer Date Recorded In the past 12 months has e [employer], gas, oil, or water company threatened to [...] your living situation today? I have a [facility] place to live 10/02/2023 Comments No Sex and Gender Information Value Date Recorded Sex Assigned at Not on file Legal Sex Female 3:40 PM TALENT SCOUT Gender Identity Not on file Sexual Orientation Not on file Last Filed Vital Signs Vital Sign Reading Time Taken Comments Blood Pressure 135/67 02/10/2024 9:59 AM TALENT SCOUT Pulse 74 02/10/2024 9:59 AM TALENT SCOUT Temperature 36.3 C (97.3 F) 02/10/2024 9:59 AM TALENT SCOUT Respiratory Rate 18 02/10/2024 9:59 AM TALENT SCOUT Oxygen Saturation 96% 02/10/2024 9:59 AM TALENT SCOUT Inhaled Oxygen Concentration - - Weight 77.4 kg (170 lb 10.2 oz) 024 10:19 AM CDT Height 166.3 cm (5' 5.47) 10/02/2023 1 0:19 AM CDT Body Mass Index 27.99 10/02/2023 10:19 AM CDT Plan of Treatment Upcoming Encounters Date Type Department Care Team (Late st Contact Info) Description 03/06/2024 9:45 AM TALENT SCOUT Office Visit Department of Family Medicine, [facility], in [address] [phone] Joon Anglin M.D. [address] [place] [phone] Discharge Disposition: Home or Self Care Medical Devices Implanted Type Area Balancer Device Identifier Shelf Expiration Date Model / Serial / Lot Synergy 4.0 X 16 - Singh [id number] Implanted:Qty: 1 on 10/17/2015 Cardiac Stent [facility] Scientific Description:Device Manufactu rer - V-Key. Device Status Text - [id number]. 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 LAB BLOOD ADD-ON Final Result [facility] [address] [place] [id number], [facility] CNFL [facility] in [address] [address] * Albumin, Random, Urine (01/09/2023 12:38 PM TALENT SCOUT) Microalbumin <12.0 mg/L 01/09/2023 12:53 PM TALENT SCOUT CNFL Comment:If clinically indica marlo, contact the lab for additional testing. Creatinine 91 mg/dL 01/09/2023 12:53 PM TALENT SCOUT CNFL Albumin/Creatinine Ratio <13 <25 mg/g 01/09/2023 12:53 PM TALENT SCOUT CNFL Comment: This ratio may not correspond with the reference range because one or both of the values used to calculate the ratio was above or below the quantification limits. Urine (Urine, Midstream) 01/09/2023 12:38 PM TALENT SCOUT 01/09/2023 12:38 PM TALENT SCOUT us Carlos Parr M.D., Ph.D. LAB URINE ORDERABLES Fi nal Result [facility] [address] [place] [id number], [facility] CNFL [facility] [place] [address] * (ABNORMAL) Basic Metabolic Panel (01/09/2023 12:26 PM TALENT SCOUT) Potassium, P 4.2 3.6 - 5.2 mmol/L 01/09/2023 1:00 PM TALENT SCOUT CNFL Sodium, P 136 135 - 145 mmol/L 01/09/2023 1:00 PM TALENT SCOUT CNFL Chloride, P 101 98 - 107 mmol/L 01/09/2023 1:00 PM TALENT SCOUT CNFL Bicarbonate, P 24 22 - 29 mmol/L 01/09/2023 1:00 PM TALENT SCOUT CNFL Anion Gap, P 11 7 - 15 01/09/2023 1:00 PM TALENT SCOUT CNFL BUN (Blood Urea Nitrogen), P 24(H) 6 - 21 mg/dL 01/09/2023 1:00 PM TALENT SCOUT CNFL Creatinine 1.42(H) 0.59 - 1.04 mg/dL 01/09/2023 1:00 PM TALENT SCOUT CNFL Estimated GFR (eGFR) 38(L) >=60 mL/min/BSA 01/09/2023 1:00 PM TALENT SCOUT CNFL Comment: Estimated GFR calculated using the 2020 CKD_EPI creatinine equation. Calcium, Total, P 9.2 8.8 - 10.2 mg/dL 01/09/2023 1:00 PM TALENT SCOUT CNFL Glucose, P 147(H) 70 - 140 mg/dL 01/09/2023 1:00 PM TALENT SCOUT CNFL Blood (Blood, Venous) 01/09/2023 12:26 PM TALENT SCOUT 01/09/2023 12:31 PM TALENT SCOUT us Jackie Stark M.D. LAB BLOOD ADD-ON Final Res ult [facility] [address] [place] [id number], [facility] CNFL [facility] in [address] [address] * BI Breast Screening Bilateral with Tomosynthesis (02/23/2021 7:45 AM TALENT SCOUT) Anatomical Region Laterality Modality Breast, Breast Imaging RST L OS, Breast Imaging ARZ LOS, Breast Imaging FLA LOS Bilateral Mammography 02/23/2021 8:48 AM TALENT SCOUT Impressions 02/23/2021 8:51 AM TALENT SCOUT Negative. RECOMMENDATION: Annual Screening Mammogram ASSESSMENT: BI-RADS: 1: Negative. Narrative 02/23/2021 8:51 AM TALENT SCOUT EXAM: BI BREAST SCREENING BILATERAL WITH TOMOSYNTHESIS [...] to HCV PCR, Serum (12/26/2018 2:50 PM TALENT SCOUT) HCV Ab Screen, S Negative Negative 12/28/19 19 1:42 AM TALENT SCOUT ECLR Comment: Biotin has been identified by the sexual assault counsellor as a potential interfering substance. Higher concentrations of biotin may be found in multivitamins, hair/nail supplements, and workout supplements. If the result does not match clinical observations, repeat testing after patient refrains from the use of supplements for at least 12 hours. Blood (Blood, Venous) 12/26/2018 2:50 PM TALENT SCOUT 12/26/2018 9:39 PM TALENT SCOUT Narrative [facility] - 12/27/2018 1:42 AM TALENT SCOUT Specimen Information: Specimen ID: [id number] Specimen Type: Blood Specimen Collection Start Date: 12/26/2018 2:50 PM Specimen Received Date: 12/26/2018 9:39 PM Specimen ID: [id number] Specimen Type: Blood Specimen Collection Start Date: 12/26/2018 2:50 PM Specimen Received Date: 12/26/2018 9:39 PM Carlos Parr M.D., Ph.D. LAB MICROBIOLOGY - BLOO D ORDERABLES Final Result [facility] [address] [place] [address], [facility] ECLR [facility] [address] from Last 3 Months or Most Recently Relevant to Health Maintenance Insurance MEDICARE [facility] Care Teams Ct Scan Special Procedures Technologist Relationship Specialty Start Date End Date Sara Nur APRN, C.N.P. [address] [place] [phone] PCP - General 07/05/23
--- OUTSIDE RECORDS SUMMARY | 2024-03-01 12:40 | XMS_ITS | Encounter Summary ---
Author Organization [facility] Address [address] [place] [address] Care Team Providers Care Resident Buyer Name Role Phone Sara Nur APRN, C.N.P. Primary Care Provide r Reason for Visit * Reason Onset Date Comments New Med Request 02/07/2024 Encounter Details Date Type Department Care Team (Latest Contact Info) Description 02/07/2024 Clinical Communication Department of Family Medicine, [facility], in [address] [phone] Sara Nur APRN, C.N.P. [address] [place] [phone] New Med Request Social History Tobacco Use Types Packs/Day Years Used Date Smoking Tobacco: Every Day Cigarettes Smokeless Tobacco: Never Alcohol Use Standard Drinks/Week Comments No 0 (1 standard drink = 0.6 oz pur e alcohol) [facility] Utilities Answer Date Recorded In the past 12 months has [employer], gas, oil, or water [employer] threatened to shut off services in your [...] your living situation today? I have a [facility] place to live 10/02/2023 Comments No Sex and Gender Information Value Date Recorded Sex Assigned at Not on file Legal Sex Female 3:40 PM SCULPTURE CONSERVATOR Gender Identity Not on file Sexual Orientation Not on file documented as of this encounter Plan of Treatment Upcoming Encounters Date Type Department Care Team (Late st Contact Info) Description 03/06/2024 9:45 AM SCULPTURE CONSERVATOR Office Visit Department of Family Medicine, [facility], in [address] [phone] Joon Anglin M.D. [address] [place] [phone] Discharge Disposition: Home or Self Care documented as of this encounter Visit Diagnoses Not on filedocumented in this encounter Additional Health Concerns Assessment Noted Time PHQ-9 Depression Total Score: 9 03/28/19 21 9:55 AM SCULPTURE CONSERVATOR documented as of this encounter Care Teams Resident Buyer Relationship Specialty Start Date End Date Sara Nur APRN, C.N.P. [address] [place] [phone] PCP - General 07/05/23 documented as of this encounter
--- OUTSIDE RECORDS SUMMARY | 2024-03-01 12:40 | XMS_ITS | Encounter Summary ---
Author Organization [facility] Address [address] [place] [address] Care Team Providers Care Machine Heel Sprayer Name Role Phone Sara Nur APRN, C.N.P. Primary Care Provide r Reason for Visit * Reason Onset Date Comments Med Refill 02/18/2024 Encounter Details Date Type Department Care Team (Late st Contact Info) Description 02/18/2024 Refill Department of Family Medicine, [facility], in [address] [phone] Sara Nur APRN, C.N.P. [address] [place] [phone] Med Refill Social History Tobacco Use Types Packs/Day Years Used Date Smoking Tobacco: Every Day Cigarettes Smokeless Tobacco: Never Alcohol Use Standard Drinks/Week Comments No 0 (1 standard drink = 0.6 oz pur e alcohol) [facility] Utilities Answer Date Recorded In the past 12 months has [employer], gas, oil, or water [employer] threatened to shut off services in your [...] your living situation today? I have a [facility] place to live 10/02/2023 Comments No Sex and Gender Information Value Date Recorded Sex Assigned at Not on file Legal Sex Female 3:40 PM EDGE STAINER MACHINE Gender Identity Not on file Sexual Orientation Not on file documented as of this encounter Miscellaneous Notes * Telephone Encounter - John Hackett, L.P.N. - 02/21/2024 11:42 AM EDGE STAINER MACHINE This prescription was prescribed for short term use / acute need. Please reach out and call patientto assess ongoing pain concerns before routing to provider. Thank you STAINER MACHINE * Telephone Encounter - Jessica Sharif - [...] muscle spasms for up to 10 days. STAINER MACHINE documented in this encounter Plan of Treatment Upcoming Encounters Date Type Department Care Team (Late st Contact Info) Description 03/06/2024 9:45 AM EDGE STAINER MACHINE Office Visit Department of Family Medicine, [facility], in [address] [phone] Joon Anglin M.D. [address] [place] [phone] Discharge Disposition: Home or Self Care documented as of this encounter Visit Diagnoses Not on filedocumented in this encounter Additional Health Concerns Assessment Noted Time PHQ-9 Depression Total Score: 9 03/28/19 21 9:55 AM EDGE STAINER MACHINE documented as of this encounter Care Teams Machine Heel Sprayer Relationship Specialty Start Date End Date Sara Nur APRN, C.N.P. [address] [place] [phone] PCP - General 07/05/23 documented as of this encounter
[2024-03-01 12:46] LABS: Creatinine, Point-of-Care* 4.4 mg/dl (0.6-1.3)
[2024-03-01 12:47] LABS: Hematocrit 34.8 % (33.0-51.0); Immature Granulocytes Pct Auto 0.8 %; Lymphocytes Percent Auto 3.1 % (20-44); Mean Corpuscular HGB Conc 35 gm/dL (32-36); Mean Corpuscular Hemoglobin 29 pg (26-34); Mean Corpuscular Volume 84 fL (80-100); Monocytes Percent Auto 3.1 % (0.0-11.0); Platelet Count* 239 K/uL (140-440); RDW Coefficient of Variation % 12.9 % (11.5-15.5); Red Blood Count 4.14 m/uL (4.00-5.20); Slide Review Reflex No; White Blood Count* 21.49 K/uL (4.50-11.00)
--- NOTE | 2024-03-01 12:54 | ED_ITS ---
HPI - General Adult General Date Seen: 03/01/24 Chief complaint: Fall/Minor Trauma Stated complaint: fall Time Seen by Provider: 03/01/24 12:05 Source: patient and EMS Mode of arrival: EMS Limitations: no limitations History of Present Illness HPI narrative: Patient is a 78-year-old female with history of hypertension, high cholesterol, diabetes presenting to the emergency department via EMS after a fall that occurred last night. Around 18:30 patient states she fell when she tried to get off the toilet. She could not get back up because she was too weak. She also states the fall was due to weakness. Patient lives alone. Her friend came to check on her this morning to bring some cake and sour on the ground and called EMS. Patient is covered in vomit. Patient claims the vomit was from another person that was in the bathroom too. Patient was able answer questions appropriately for me but she was having intermittent confusion. Is stating she is having abdominal pain. Also bilateral hip pain. Denies chest pain or shortness of breath. Denies hitting her head. Denies any neck pain. Is not on any blood thinners. Denies fevers, chills, headache, vision changes, diarrhea, constipation, dysuria. Related Data Home Medications ?Medication ?Instructions ?Recorded ?Confirmed alendronate 70 mg tablet 70 mg PO 03/01/24 amlodipine 5 mg tablet 5 mg PO DAILY 03/01/24 03/01/24 aspirin 81 mg tablet,delayed 81 mg PO DAILY 03/01/24 03/01/24 release atorvastatin 40 mg tablet 40 mg PO QPM 03/01/24 03/01/24 cyclobenzaprine 10 mg tablet 10 mg PO 3XD 03/01/24 03/01/24 lisinopril 20 1 tab PO DAILY 03/01/24 03/01/24 mg-hydrochlorothiazide 12.5 mg tablet metformin 500 mg tablet 500 mg PO BID 03/01/24 03/01/24 metoprolol succinate 100 mg 100 mg PO DAILY 03/01/24 03/01/24 tablet,extended release 24 hr mirtazapine 15 mg tablet 15 mg PO QPM 03/01/24 03/01/24 Allergies Allergy/AdvReac Type Severity Reaction Status Date / Time No Known Drug Allergies Allergy Verified 03/01/24 11:59 Review of Systems Status of ROS: Reports: 10 or more systems reviewed and unremarkable except as noted in History and below [facility] Social History Do you use any of these nicotine containing products: None Second hand tobacco smoke exposure: No How often do you have a drink containing alcohol: never AUDIT-C Alcohol total score: 0 Non-prescribed substance use: denies use service: No Exam Narrative: Exam Narrative: Const: In mild distress, appears to show a will, vomit to right side of face. Eyes: PERRL, no conjunctival injection, and symmetrical lids HENT: Atraumatic external nose and ears. Moist mucous membranes. No palpable skull fractures Neck: Symmetric, trachea midline, No thyromegaly. No midline tenderness CVS: RRR, No murmurs or gallops. Peripheral pulses 2+ and equal in all extremities RESP: Unlabored respiratory effort. Clear to auscultation bilaterally. GI: Diffuse abdominal tenderness with guarding. Nondistended, No rebound. MSK:Extremities w/o deformity, decreased range of motion noted at both hips but she is able to move them. bilateral hip tenderness Skin: Warm, Dry. No rashes or lesions. Neuro: Normal Muscle tone, No focal neurological deficits. Psych: Awake, Alert, & Oriented x3. Appropriate mood and affect. Const: Vital Signs, click to edit/add: Vital Signs - 24 hr 03/01/24 11:52 03/01/24 11:54 03/01/24 11:55 Temperature 97.3 F L Pulse Rate 103 H 87 Pulse Rate [Right Pulse Oximeter] 114 H Respiratory Rate 18 Blood Pressure 142/66 H Blood Pressure [Ri ght Upper Arm] 142/66 H Pulse Oximetry 98 98 95 Oxygen Delivery Me thod Room Air 03/01/24 12:00 03/01/24 12:15 03/01/24 12:45 Temperature Pulse Rate 80 109 H 112 H Pulse Rate [Right Pulse Oximeter] Respiratory Rate 20 Blood Pressure 128/75 Blood Pressure [Ri ght Upper Arm] Pulse Oximetry 98 95 96 Oxygen Delivery Me thod Room Air 03/01/24 12:46 03/01/24 12:47 03/01/24 13:00 Temperature Pulse Rate 104 H 104 H 104 H Pulse Rate [Right Pulse Oximeter] Respiratory Rate Blood Pressure 131/70 Blood Pressure [Ri ght Upper Arm] Pulse Oximetry 95 96 95 Oxygen Delivery Me thod 03/01/24 13:01 03/01/24 13:15 03/01/24 13:16 Temperature Pulse Rate 98 103 H 101 H Pulse Rate [Right Pulse Oximeter] Respiratory Rate Blood Pressure 128/56 L 128/65 Blood Pressure [Ri ght Upper Arm] Pulse Oximetry 95 97 95 Oxygen Delivery Me thod 03/01/24 13:30 03/01/24 13:31 03/01/24 13:45 Temperature Pulse Rate 89 87 101 H Pulse Rate [Right Pulse Oximeter] Respiratory Rate Blood Pressure 117/69 Blood Pressure [Ri ght Upper Arm] Pulse Oximetry 91 97 98 Oxygen Delivery Me thod 03/01/24 13:47 03/01/24 13:48 03/01/24 14:35 Temperature Pulse Rate 103 H 102 H 95 Pulse Rate [Right Pulse Oximeter] Respiratory Rate 18 16 Blood Pressure 123/113 H 132/64 Blood Pressure [Ri ght Upper Arm] Pulse Oximetry 99 97 98 Oxygen Delivery Me thod Room Air Room Air 03/01/24 14:36 03/01/24 14:45 03/01/24 14:47 Temperature Pulse Rate 101 H 90 96 Pulse Rate [Right Pulse Oximeter] Respiratory Rate 20 Blood Pressure 107/76 Blood Pressure [Ri ght Upper Arm] Pulse Oximetry 97 97 97 Oxygen Delivery Me thod 03/01/24 14:48 03/01/24 15:00 03/01/24 15:02 Temperature Pulse Rate 95 106 H 104 H Pulse Rate [Right Pulse Oximeter] Respiratory Rate 16 Blood Pressure 142/64 H Blood Pressure [Ri ght Upper Arm] Pulse Oximetry 97 96 97 Oxygen Delivery Me thod Room Air 03/01/24 15:15 03/01/24 15:16 03/01/24 15:30 Temperature Pulse Rate 105 H 104 H 105 H Pulse Rate [Right Pulse Oximeter] Respiratory Rate Blood Pressure 136/68 Blood Pressure [Ri ght Upper Arm] Pulse Oximetry 94 96 97 Oxygen Delivery Me thod 03/01/24 15:31 03/01/24 15:45 03/01/24 15:47 Temperature Pulse Rate 95 107 H 104 H Pulse Rate [Right Pulse Oximeter] Respiratory Rate Blood Pressure 137/62 120/72 Blood Pressure [Ri ght Upper Arm] Pulse Oximetry 97 100 99 Oxygen Delivery Me thod 03/01/24 16:00 03/01/24 16:01 Temperature Pulse Rate 106 H 105 H Pulse Rate [Right Pulse Oximeter] Respiratory Rate Blood Pressure 124/73 Blood Pressure [Ri ght Upper Arm] Pulse Oximetry 99 99 Oxygen Delivery Me thod Course Vital Signs Vital signs: Initial Vital Signs Temperature 97.3 F L 03/01/24 11:52 Temperature Source Temporal Artery Scan 03/01/24 11:52 Pulse Rate 114 H 03/01/24 11:52 Pulse Rhythm Regular 03/01/24 11:52 Respiratory Rate 18 03/01/24 11:52 Blood Pressure 142/66 H 03/01/24 11:52 Blood Pressure Mean 91 03/01/24 11:52 Blood Pressure Position Supine 03/01/24 11:52 Pulse Oximetry 98 03/01/24 11:52 Oxygen Delivery Method Room Air 03/01/24 11:52 Vital Signs Temperature 97.3 F L 03/01/24 11:52 Pulse Rate 114 H 03/01/24 11:52 Respiratory Rate 18 03/01/24 11:52 Blood Pressure 142/66 H 03/01/24 11:52 Pulse Oximetry 98 03/01/24 11:52 Oxygen Delivery Method Room Air 03/01/24 11:52 Temperature 97.3 F L 03/01/24 11:52 Pulse Rate 105 H 03/01/24 16:01 Respiratory Rate 16 03/01/24 15:02 Blood Pressure 124/73 03/01/24 16:01 Pulse Oximetry 99 03/01/24 16:01 Oxygen Delivery Method Room Air 03/01/24 15:02 Medications Administered Medications: Generic Name Dose Route Start Last Admin Trade Name Freq PRN Reason Stop Dose Admin Potassium Chloride 10 meq in 100 mls @ 100 mls/hr 03/01/24 13:15 03/01/24 16:59 Potassium Chloride IVPB 03/01/24 18:44 100 mls/hr Q90M LEANDRA Administration Sodium Chloride 1,000 mls @ 125 mls/hr 03/01/24 15:22 03/01/24 14:00 0.9 % Sodium Chloride 1000 Ml IV 125 mls/hr .Q8H LEANDRA Administration Discontinued Medications Generic Name Dose Route Start Last Admin Trade Name Freq PRN Reason Stop Dose Admin Sodium Chloride 1,000 mls @ 1,000 mls/hr 03/01/24 13:13 03/01/24 13:21 0.9 % Sodium Chloride 1000 Ml IV 03/01/24 14:12 1,000 mls/hr .Q1H LEANDRA Administration Piperacillin Sod/Tazobactam 100 mls @ 200 mls/hr 03/01/24 15:21 03/01/24 15:38 Sod 3.375 gm/ Sodium Chloride IVPB 03/01/24 15:22 200 mls/hr ONCE ONE Administration Ondansetron HCl 4 mg 03/01/24 12:14 03/01/24 12:38 Ondansetron 2 Mg/Ml Inj IVP 03/01/24 12:15 4 mg ONCE ONE Administration Potassium Bicarbonate 25 meq 03/01/24 13:09 03/01/24 13:22 Potassium Bicarb 25 Meq Effervescent Tab PO 03/01/24 13:10 25 meq ONCE ONE Administration Medical Decision Making MDM Narrative Medical decision making narrative: Patient is a 78-year-old female presenting to the emergency department for altered mental status, weakness. She has been on the ground for over 12 hours. She is having intermittent episodes of lucency. Is answering most of my questions appropriately but is trying to convince me there are other people at her apartment and 1 of them vomited on her after she fell. She is able answer other questions appropriately. Considering how long she was down I a.m. concerned about rhabdomyolysis. She is also having diffuse abdominal pain and considering everything I will do a CT scan of the chest abdomen pelvis for better evaluation. Will also CT scan the head and cervical spine. This is broad-spectrum of issues likely cause a syncopal electrolyte abnormalities, seizure, infection. With her hip pain I do want to make sure there is no fracture. She is able to move her legs mildly. Patient's lab work comes back with quite a few abnormalities. The 1st abnormality the return was a white coat 21. I have no previous lab work to compare to including in [facility]. Have no idea what her baseline is. She states she was last seen in the emergency [place] but I do not see any thing in [facility]. I spoke to her she states she has no history of multiple myeloma or cancer. Her CMP came back with potassium 1.9. Due to this lactate could not be done. She was given IV and p.o. potassium replacement. He does have an anion gap metabolic acidosis. Creatinine is elevated would point to. As far as she is aware she has never had kidney issues. This acidosis may be from lactate that we are unable to check. She also has a glucose of 292. Does not appear to be in [facility] but I will check a serum osmolalities and a VBG. This does show she has acidosis. Calcium and Augustin cm I just barely above the normal limits. Her creatinine kinase is significantly elevated at 2342 consistent with rhabdomyolysis. She also so troponin of 0.92. EKG shows no clear signs of STEMI and she is not having chest pain right now. There are some diffuse depressions most prominent in the ventral leads which could be a sign of a posterior STEMI telling him without having any pain this does seem unlikely. Will order a posterior EKG though. COVID/flu/RSV is negative and urinalysis shows no signs of UTI. Lipase is also elevated. At this point I will treat Zosyn for possible infection. Did do the posterior EKG to look for signs of a posterior PR but posterior EKG does not show any elevation. There is still some very mild depressions in V2 and V3 but otherwise no clear issues. Appears to have T wave inversions in inferior leads. CT scan of her head shows no acute abnormalities. CT scan cervical spine shows extensive lytic lesions consistent with possible malignancy or multiple myeloma. She states she has no history of either. CT scan of the chest/abdomen/pelvis pelvis shows an acute nondisplaced fracture of the trans verse processes of the L2 vertebral body. This is a stable fracture. There is no acute CT evidence of other traumatic injuries. There are numerous lytic lesions throughout the spine and pelvis is concerning for metastatic disease versus multiple myeloma. He she also has airspace opacity in the right lower lobe concerning for pneumonia along with a solid pulmonary lung nodule left lung apex measuring 2.4 cm and multiple low-density hepatic lesions both the incompletely characterized on this exam. We will add azithromycin for her pneumonia. This point seems like she has a likely metastatic cancer causing a lot of her problems. I do believe she needs to be transferred to higher level of care. She is agreeable to this plan. We where able to find a bed at [facility]. She was accepted for transfer and she agrees to this plan. Lab Data Labs: Lab Results 03/01/24 03/01/24 03/01/24 Range/Units 12:15 12:40 13:00 WBC 21.49 H (4.50-11.00) K/uL RBC 4.14 (4.00-5.20) m/uL Hgb 12.0 (12.0-16.0) gm/dL Hct 34.8 (33.0-51.0) % MCV 84 (80-100) fL MCH 29 (26-34) pg MCHC 35 (32-36) gm/dL RDW Coeff of Louise 12.9 (11.5-15.5) % Plt Count 239 (140-440) K/uL Neut % (Auto) 93.0 H (42.0-72.0) % Lymph % (Auto) 3.1 L (20-44) % [place] % (Auto) 3.1 (0.0-11.0) % Eos % (Auto) 0.0 (0.0-7.0) % Baso % (Auto) 0.0 (0.0-3.0) % Neut # (Auto) 20.00 H (1.7-7.0) K/uL Lymph # (Auto) 0.70 L (0.90-2.90) K/uL [place] # (Auto) 0.70 (0.00-0.90) K/UL Eos # (Auto) 0.00 (0.00-0.50) K/uL Baso # (Auto) 0.00 (0.00-0.30) K/uL Abs Immat Gran (auto) 0.20 (0.00-0.30) K/uL Imm/Tot Granulo (auto) 0.8 % VBG pH 7.269 L (7.32-7.43) VBG pCO2 38 L (40-50) mmHG VBG pO2 33.7 (25-47) mmHG VBG HCO3 17 L (21-28) mmol/L Sodium 143 (135-149) mmol/L Potassium 1.9 L* (3.6-5.1) mmol/L Chloride 107 (96-114) mmol/L Carbon Dioxide 14 L (20-32) mmol/L Anion Gap 22 H (7-15) mEq/L BUN 109 H (7-30) mg/dL Creatinine 4.2 H (0.5-1.5) mg/dL Estimated Creat Clear 10.33 Estimated GFR 10 ml/min Glucose 292 H (60-115) mg/dL Lactate Cancelled Calcium 10.7 H (8.4-10.6) mg/dL Phosphorus 4.6 H (2.5-4.5) mg/dL Magnesium 2.3 (1.5-2.6) mg/dL Total Bilirubin 1.1 (0.1-1.5) mg/dL AST 81 H (12-35) U/L ALT 22 (4-35) U/L Alkaline Phosphatase 386 H (40-150) U/L Total Creatine Kinase 2342 H (41-117) U/L Troponin I 0.92 H* (0.01-0.04) ng/mL Total Protein 6.8 (6.0-8.3) g/dL Albumin 3.6 (3.3-5.0) g/dL Lipase 725 H (23-300) U/L Urine Color (Yellow) Urine Appearance (Clear) Urine pH (5.0-8.5) Ur Specific Jaffrey (1.000-1.030) Urine Protein (Negative) Urine Glucose (UA) (Negative) Urine Ketones (Negative) Urine Blood (Negative) Urine Nitrite (Negative) Urine Bilirubin (Negative) Urine Urobilinogen (0.2-1.0) Ur Leukocyte Esterase (Negative) Urine RBC (0-2) Urine WBC (0-5) Ur Squamous Epith Cells (None-Few) Urine Bacteria (None) SARS-CoV-2 (PCR) (Negative) Influenza Type A (PCR) (Negative) Influenza Type B (PCR) (Negative) RSV (PCR) (Negative) Lab Acknowledgement POC Creatinine 4.4 H (0.6-1.3) mg/dl 03/01/24 03/01/24 03/01/24 Range/Units 13:11 13:15 13:17 WBC (4.50-11.00) K/uL RBC (4.00-5.20) m/uL Hgb (12.0-16.0) gm/dL Hct (33.0-51.0) % MCV (80-100) fL MCH (26-34) pg MCHC (32-36) gm/dL RDW Coeff of Louise (11.5-15.5) % Plt Count (140-440) K/uL Neut % (Auto) (42.0-72.0) % Lymph % (Auto) (20-44) % [place] % (Auto) (0.0-11.0) % Eos % (Auto) (0.0-7.0) % Baso % (Auto) (0.0-3.0) % Neut # (Auto) (1.7-7.0) K/uL Lymph # (Auto) (0.90-2.90) K/uL [place] # (Auto) (0.00-0.90) K/UL Eos # (Auto) (0.00-0.50) K/uL Baso # (Auto) (0.00-0.30) K/uL Abs Immat Gran (auto) (0.00-0.30) K/uL Imm/Tot Granulo (auto) % VBG pH (7.32-7.43) VBG pCO2 (40-50) mmHG VBG pO2 (25-47) mmHG VBG HCO3 (21-28) mmol/L Sodium (135-149) mmol/L Potassium (3.6-5.1) mmol/L Chloride (96-114) mmol/L Carbon Dioxide (20-32) mmol/L Anion Gap (7-15) mEq/L BUN (7-30) mg/dL Creatinine (0.5-1.5) mg/dL Estimated Creat Clear Estimated GFR ml/min Glucose (60-115) mg/dL Lactate Calcium (8.4-10.6) mg/dL Phosphorus (2.5-4.5) mg/dL Magnesium (1.5-2.6) mg/dL Total Bilirubin (0.1-1.5) mg/dL AST (12-35) U/L ALT (4-35) U/L Alkaline Phosphatase (40-150) U/L Total Creatine Kinase (41-117) U/L Troponin I (0.01-0.04) ng/mL Total Protein (6.0-8.3) g/dL Albumin (3.3-5.0) g/dL Lipase (23-300) U/L Urine Color (Yellow) Urine Appearance (Clear) Urine pH (5.0-8.5) Ur Specific Jaffrey (1.000-1.030) Urine Protein (Negative) Urine Glucose (UA) (Negative) Urine Ketones (Negative) Urine Blood (Negative) Urine Nitrite (Negative) Urine Bilirubin (Negative) Urine Urobilinogen (0.2-1.0) Ur Leukocyte Esterase (Negative) Urine RBC (0-2) Urine WBC (0-5) Ur Squamous Epith Cells (None-Few) Urine Bacteria (None) SARS-CoV-2 (PCR) Negative SARS-CoV-2 (Negative) Influenza Type A (PCR) Negative PCR FLU A (Negative) Influenza Type B (PCR) Negative PCR FLU B (Negative) RSV (PCR) Negative PCR RSV (Negative) Lab Acknowledgement Test Added Test Added POC Creatinine (0.6-1.3) mg/dl 03/01/24 Range/Units 13:55 WBC (4.50-11.00) K/uL RBC (4.00-5.20) m/uL Hgb (12.0-16.0) gm/dL Hct (33.0-51.0) % MCV (80-100) fL MCH (26-34) pg MCHC (32-36) gm/dL RDW Coeff of Louise (11.5-15.5) % Plt Count (140-440) K/uL Neut % (Auto) (42.0-72.0) % Lymph % (Auto) (20-44) % [place] % (Auto) (0.0-11.0) % Eos % (Auto) (0.0-7.0) % Baso % (Auto) (0.0-3.0) % Neut # (Auto) (1.7-7.0) K/uL Lymph # (Auto) (0.90-2.90) K/uL [place] # (Auto) (0.00-0.90) K/UL Eos # (Auto) (0.00-0.50) K/uL Baso # (Auto) (0.00-0.30) K/uL Abs Immat Gran (auto) (0.00-0.30) K/uL Imm/Tot Granulo (auto) % VBG pH (7.32-7.43) VBG pCO2 (40-50) mmHG VBG pO2 (25-47) mmHG VBG HCO3 (21-28) mmol/L Sodium (135-149) mmol/L Potassium (3.6-5.1) mmol/L Chloride (96-114) mmol/L Carbon Dioxide (20-32) mmol/L Anion Gap (7-15) mEq/L BUN (7-30) mg/dL Creatinine (0.5-1.5) mg/dL Estimated Creat Clear Estimated GFR ml/min Glucose (60-115) mg/dL Lactate Calcium (8.4-10.6) mg/dL Phosphorus (2.5-4.5) mg/dL Magnesium (1.5-2.6) mg/dL Total Bilirubin (0.1-1.5) mg/dL AST (12-35) U/L ALT (4-35) U/L Alkaline Phosphatase (40-150) U/L Total Creatine Kinase (41-117) U/L Troponin I (0.01-0.04) ng/mL Total Protein (6.0-8.3) g/dL Albumin (3.3-5.0) g/dL Lipase (23-300) U/L Urine Color Yellow (Yellow) Urine Appearance Clear (Clear) Urine pH 5.5 (5.0-8.5) Ur Specific Jaffrey >= 1.030 (1.000-1.030) Urine Protein 2+ A (Negative) Urine Glucose (UA) Negative (Negative) Urine Ketones Negative (Negative) Urine Blood 3+ A (Negative) Urine Nitrite Negative (Negative) Urine Bilirubin Negative (Negative) Urine Urobilinogen 0.2 (0.2-1.0) Ur Leukocyte Esterase Negative (Negative) Urine RBC 0-2 (0-2) Urine WBC 0-2 (0-5) Ur Squamous Epith Cells Few (None-Few) Urine Bacteria None (None) SARS-CoV-2 (PCR) (Negative) Influenza Type A (PCR) (Negative) Influenza Type B (PCR) (Negative) RSV (PCR) (Negative) Lab Acknowledgement POC Creatinine (0.6-1.3) mg/dl Imaging Data CT scan head: Attestation: I have reviewed the pertinent imaging results. Radiologist's impression: Age-related and chronic small-vessel disease changes of the brain without acute intracranial abnormality. Please note that all CT scans at this facility use dose modulation, iterative reconstruction, and/or weight-based dosing when appropriate to reduce radiation dose to as low as reasonably achievable. Dictated by Juan Jose Keene MD @ 03/01/2024 3:29:[address] scan cervical spine: Radiologist's impression: Demonstration of extensive lytic lesions seen throughout the entirety of the cervical spine commensurate with likely metastatic disease versus multiple myeloma. Correlate with history of clinical symptoms and known malignancy. No evidence of displaced pathologic fracture. Please note that all CT scans at this facility use dose modulation, iterative reconstruction, and/or weight-based dosing when appropriate to reduce radiation dose to as low as reasonably achievable. Dictated by Juan Jose Keene MD @ 03/01/2024 3:09:50 PM X-ray hips: Attestation: I have reviewed the pertinent imaging results. Radiologist's impression: No acute osseous abnormality. Dictated by Pedro Mariee MD @ 03/01/2024 3:06:[address] Chest/Ab/Pelvis: Attestation: I have reviewed the pertinent imaging results. Radiologist's impression: 1. Acute, nondisplaced fracture of the transverse process of the L2 vertebral body on the right (series number 3, image 111). 2. Otherwise, no CT evidence of acute traumatic injury involving the remainder of the exam. 3. Remote compression fracture deformity of the T4 vertebral body. 4. There are numerous lytic lesions seen throughout the spine and pelvis, concerning for sequela of metastatic disease versus multiple myeloma. 5. Airspace opacities in the right lower lobe, concerning for pneumonia. 6. Solid pulmonary nodule in the left lung apex measuring 2.4 centimeters and multiple low-density hepatic lesions, both incompletely characterized on this exam, correlate with prior imaging if available; otherwise, consider PET-CT for evaluation of the pulmonary nodule and CT or MRI with liver protocol for further assessment. Please note that all CT scans at this facility use dose modulation, iterative reconstruction, and/or weight-based dosing when appropriate to reduce radiation dose to as low as reasonably achievable. Dictated by Janusz Tee MD @ 03/01/2024 4:26:10 PM ECG Data Attestation: I personally reviewed and interpreted this ECG as follows: Prior ECG tracings: not available for review Interpretation: Initial EKG shows sinus tachycardia with a rate of 105 beats per minute with a first-degree AV block and some premature atrial complexes. There does appear to be some diffuse ST depressions most pronounced and needs V2 and V3. Posterior EKG done shows sinus rhythm with rate of 90 beats per minute, again some mild depressions most notably in V2 and V3. Do not see any elevations in the posterior leads. Discharge Plan Discharge Clinical Impression: Acute hypokalemia Pneumonia Qualifiers: Pneumonia type: due to unspecified organism Laterality: right Lung location: lower lobe of lung Qualified Code(s): J18.9 - Pneumonia, unspecified organism Acute renal failure Qualifiers: Acute renal failure type: unspecified Qualified Code(s): N17.9 - Acute kidney failure, unspecified Prescriptions: No Action cyclobenzaprine 10 mg tablet 10 mg PO 3XD atorvastatin 40 mg tablet 40 mg PO QPM metformin 500 mg tablet 500 mg PO BID lisinopril-hydrochlorothiazide 20-12.5 mg tablet 1 tab PO DAILY alendronate 70 mg tablet 70 mg PO metoprolol succinate 100 mg tablet extended release 24 hr 100 mg PO DAILY amlodipine 5 mg tablet 5 mg PO DAILY aspirin 81 mg tablet,delayed release (DR/EC) 81 mg PO DAILY mirtazapine 15 mg tablet 15 mg PO QPM Follow Up/Referrals: Sara Nur, AG[employer] OR DISABLED CARE WORKER [Primary Care Provider] -
[2024-03-01 12:55] LABS: Albumin* 3.6 g/dL (3.3-5.0); Chloride* 107 mmol/L (96-114)
[2024-03-01 12:56] LABS: Sodium* 143 mmol/L (135-149)
[2024-03-01 12:58] LABS: Anion Gap 22 mEq/L (7-15); Bilirubin Total* 1.1 mg/dL (0.1-1.5); Carbon Dioxide* 14 mmol/L (20-32); Creatinine* 4.2 mg/dL (0.5-1.5); Est. Creatinine Clearance* 10.33; Estimated Glomerular Filt Rate 10 ml/min; Total Protein* 6.8 g/dL (6.0-8.3)
[2024-03-01 12:59] LABS: Alanine Aminotransferase* 22 U/L (4-35); Alkaline Phosphatase* 386 U/L (40-150); Aspartate Amino Transferase* 81 U/L (12-35); Blood Urea Nitrogen* 109 mg/dL (7-30); Calcium* 10.7 mg/dL (8.4-10.6); Glucose* 292 mg/dL (60-115); Lipase* 725 U/L (23-300); Potassium* 1.9 mmol/L (3.6-5.1)
[2024-03-01 13:00] LABS: Magnesium* 2.3 mg/dL (1.5-2.6)
[2024-03-01 13:08] LABS: Creatine Kinase* 2342 U/L (41-117)
[2024-03-01] MEDS: 0.9 % SODIUM CHLORIDE 1000 ml 1,000 ML IV (13:21)
[2024-03-01] MEDS: POTASSIUM BICARB 25 MEQ EFFERVESCENT TAB PO (13:22)
[2024-03-01] MEDS: POTASSIUM CHLORIDE 10 MEQ/100 ML PIGGYBACK 100 MEQ IVPB ×4 (13:22→16:59)
[2024-03-01 13:23] LABS: Troponin I* 0.92 ng/mL (0.01-0.04)
[2024-03-01 13:23] LABS: pH VBG 7.269 (7.32-7.43)
[2024-03-01 13:24] LABS: HCO3 VBG 17 mmol/L (21-28); PCO2 VBG 38 mmHG (40-50); PO2 VBG 33.7 mmHG (25-47)
[2024-03-01 13:37] LABS: Phosphorus* 4.6 mg/dL (2.5-4.5)
[2024-03-01] MEDS: 0.9 % SODIUM CHLORIDE 1000 ml 1,000 ML 125 ML IV (14:00)
[2024-03-01 14:02] LABS: Appearance Urine Clear (Clear); Bilirubin Urine Negative (Negative); Blood Urine 3+ (Negative); Color Urine Yellow (Yellow); Glucose Urine Negative (Negative); Ketones Urine Negative (Negative); Leukocyte Esterase Urine Negative (Negative); Nitrite Urine Negative (Negative); Protein Urine 2+ (Negative); Specific Gravity Urine >= 1.030 (1.000-1.030); Urobilinogen Urine 0.2 (0.2-1.0); pH Urine 5.5 (5.0-8.5)
[2024-03-01 14:05] LABS: PCR FLU A Negative PCR FLU A (Negative); PCR FLU B Negative PCR FLU B (Negative); PCR RSV Negative PCR RSV (Negative); SARS PCR* Negative SARS-CoV-2 (Negative)
[2024-03-01 14:09] LABS: RBC Urine 0-2 (0-2); Squamous Epithelial Cell Urine Few (None-Few); WBC Urine 0-2 (0-5)
[2024-03-01] MEDS: PIPERACILLIN/TAZOBACTAM 3.375 GM in 0.9 % SODIUM CHLORIDE Mini-bag 100 ML IVPB (15:38)
[2024-03-01] MEDS: AZITHROMYCIN 500 MG in 0.9 % SODIUM CHLORIDE 250 ml 250 ML 255 MG IVPB (17:36)
== END 2024-03-01 19:00 | disposition other institution (70) ==
PROVIDERS: Emergency Provider Student in an Organized Health Care Education/Training Program; PCP Clinical Nurse Specialist Adult Health
DX: J18.9 Pneumonia, unspecified organism (principal); E87.6 Hypokalemia; N17.9 Acute kidney failure, unspecified
CPT/HCPCS: 36415; 70450; 71250; 72125; 73521; 74176; 80048; 80053; 81001; 82550; 82565; 82803; 83605; 83690; 83735; 83930; 84100; 84484; 85025; 87040; 87631; 93005; 96361; 96374; 96375; 99285; 99291; A9270; J0456; J2405; J2543; J3480; J7030; J7050

== ENCOUNTER 2024-03-01 19:07 | Outpatient (CLI) | payer MEDICARE, BC, SELFPAY | END 2024-03-01 19:08 | disposition home or self-care (01) | LOC: AMB 03-18 16:18 | PROVIDERS: PCP Clinical Nurse Specialist Adult Health; Visit Provider Emergency Medicine | DX: E87.6 Hypokalemia (principal); J18.9 Pneumonia, unspecified organism; N17.9 Acute kidney failure, unspecified; R41.0 Disorientation, unspecified; R53.1 Weakness | CPT/HCPCS: A0425; A0427 ==

== ENCOUNTER 2024-03-25 12:24 | Outpatient (CLI) | payer MEDICARE, BC, SELFPAY | END 2024-03-25 12:25 | disposition home or self-care (01) | LOC: AMB 03-31 09:38 | PROVIDERS: PCP Clinical Nurse Specialist Adult Health; Visit Provider Family Medicine | DX: C34.90 Malignant neoplasm of unspecified part of unspecified bronchus or lung (principal); Z51.5 Encounter for palliative care | CPT/HCPCS: A0425; A0428 ==